=== PATIENT | male | born 1965 | race Caucasian/White ===

== ENCOUNTER 2022-10-24 21:30 | Inpatient (IN) | payer OTHER ==
--- NOTE | 2022-10-24 21:44 | ED ---
General Adult HPI - General Stated complaint: Abd Pain Time Seen by Provider: 10/24/22 21:38 - History of Present Illness Initial comments: This patient is a 57-year-old man here to have evaluation of abdominal pain. History is given both the patient and the majority of it by his , as he is having significant epigastric pain. The patient had been feeling pretty well and then had eaten dinner, following that by about 10 minutes he started to have severe epigastric pain. [place] and he went into the [place]. The patient states she found him complaining of significant pain and feeling sweaty. Patient now indicates the pain is in the right upper quadrant and radiates to his back. -: minutes(s) Location: abdomen Radiation: back Severity scale (1-10): 10 Quality: aching, constant Consistency: constant Improves with: none Worsens with: none Associated Symptoms: diaphoresis, nausea/vomiting Treatments Prior to Arrival: none - Related Data Home Medications Medication Instructions Recorded Confirmed Atorvastatin [Lipitor] 20 mg PO HS 10/24/22 10/24/22 DULoxetine HCL [Cymbalta] 60 mg PO DAILY 10/24/22 10/24/22 Omeprazole 40 mg PO DAILY PRN 10/24/22 10/24/22 Terbinafine [LamISIL] 250 mg PO DAILY 10/24/22 10/24/22 allopurinoL 100 mg PO BID 10/24/22 10/24/22 methocarbamoL [Robaxin-750] 750 mg PO TID PRN 10/24/22 10/24/22 Previous Rx's Medication Instructions Recorded Acetaminophen Tab [Tylenol] 650 mg PO Q6HR PRN tab 11/01/22 HYDROcodone/APAP 5-325MG [[place] 1 each PO Q6HR PRN #9 tab 11/01/22 5-325] Mag Hydrox/Al Hydrox/Simeth 15 ml PO Q6HR PRN ml 11/01/22 [Maalox] Nicotine 21Mg/24Hr Patch [Habitrol] 1 patch TRANSDERM DAILY #30 patch 11/01/22 Ondansetron Odt [Zofran Odt] 4 mg PO Q8HR PRN #20 tab 11/01/22 Allergies Allergy/AdvReac Type Severity Reaction Status Date / Time No Known Allergies Allergy Verified 10/24/22 22:29 Review of Systems ROS Statement: Those systems with pertinent positive or pertinent negative responses have been documented in the HPI. ROS Other: All systems not noted in ROS Statement are negative. Constitutional: Denies: fever, chills, weakness Respiratory: Denies: cough, dyspnea Cardiovascular: Denies: chest pain, palpitations, edema, syncope Gastrointestinal: Reports: abdominal pain, nausea. Denies: diarrhea, constipation, melena, hematochezia Genitourinary: Denies: dysuria, hematuria Musculoskeletal: Denies: back pain Skin: Denies: rash Neurological: Denies: headache, weakness General Exam General appearance: alert, in distress Head exam: Present: atraumatic, normocephalic Eye exam: Present: normal appearance. Absent: scleral icterus, conjunctival injection Neck exam: Present: normal inspection, full ROM Respiratory exam: Present: normal lung sounds bilaterally. Absent: respiratory distress, wheezes, rales, rhonchi, stridor Cardiovascular Exam: Present: regular rate, normal rhythm, normal heart sounds. Absent: systolic murmur, diastolic murmur, rubs, gallop GI/Abdominal exam: Present: soft, tenderness, guarding. Absent: distended, rebound, rigid, mass Extremities exam: Present: normal inspection, normal capillary refill. Absent: pedal edema, calf tenderness Back exam: Present: normal inspection. Absent: CVA tenderness (R), CVA tenderness (L) Neurological exam: Present: alert Skin exam: Present: warm, dry, intact, normal color. Absent: rash Course Vital Signs 10/24/22 10/24/22 10/24/22 21:35 22:22 23:13 Temperature 97.5 F L Pulse Rate 73 82 79 Respiratory 24 22 20 Rate Blood Pressure 104/60 112/64 110/64 O2 Sat by Pulse 93 L 96 96 Oximetry 10/25/22 01:19 Temperature Pulse Rate 89 Respiratory 18 Rate Blood Pressure 145/92 O2 Sat by Pulse 94 L Oximetry EKG Findings - EKG Results: EKG: WNL, sinus rhythm (Rate 75 bpm), normal axis, normal QRS, normal ST/T, no acute changes Medical Decision Making - Medical Decision Making Was pt. sent in by a medical professional or institution (, PA, LICENSED PRACTICAL VOCATIONAL NURSE, urgent care, hospital, or halfway...) When possible be specific @ -[No] Did you speak to anyone other than the patient for history (EMS, parent, family, police, friend...)? What history was obtained from this source @ -[The patient's family did contribute to history Did you review nursing and triage notes (agree or disagree)? Why? @ -[I reviewed and agree with nursing and triage notes] Were old charts reviewed (outside hosp., previous admission, EMS record, old EKG, old radiological studies, urgent care reports/EKG's, halfway records)? Report findings @ -[No old charts were reviewed] Differential Diagnosis (chest pain, altered mental status, abdominal pain women, abdominal pain men, vaginal bleeding, weakness, fever, dyspnea, syncope, headache, dizziness, GI bleed, back pain, seizure, CVA, palpatations, mental health, musculoskeletal)? @ -[Differential Abdominal Pain Men: Appendicitis, cholecystitis, diverticulosis, ischemic bowel, pancreatitis, hepatitis, UTI, gastroenteritis, AAA, incarcerated hernia, bowel obstruction, constipation, inflammatory bowel, hepatitis, peptic ulcer disease, splenic infarction, perforated viscus, testicular torsion, this is not meant to be an all-inclusive list EKG interpreted by me (3pts min.). @ -[As above] X-rays interpreted by me (1pt min.). @ -[None done] CT interpreted by me (1pt min.). @ -[Computed tomography scan of the abdomen which I interpreted to show suspected pancreatitis U/S interpreted by me (1pt. min.). @ -[None done] What testing was considered but not performed or refused? (CT, X-rays, U/S, labs)? Why? @ -[None] What meds were considered but not given or refused? Why? @ -[None] Did you discuss the management of the patient with other professionals (professionals i.e. Dr., PA, LICENSED PRACTICAL VOCATIONAL NURSE, lab, RT, psych nurse, healthcare social worker, railway switch operator, teacher, cash management officer, case preparer and liner)? Give summary @ -[Case discussed with admitting physician Was smoking cessation discussed for >3mins.? @ -[No] Was critical care preformed (if so, how long)? @ -[No] Were there social determinants of health that impacted care today? How? (Homelessness, low income, unemployed, alcoholism, drug addiction, transportation, low edu. Level, literacy, decrease access to med. care, correction, r ehab)? @ -[No] Was there de-escalation of care discussed even if they declined (Discuss DNR or withdrawal of care, Hospice)? DNR status @ -[No] What co-morbidities impacted this encounter? (DM, HTN, Smoking, COPD, CAD, Cance r, CVA, ARF, Chemo, Hep., AIDS, mental health diagnosis, sleep apnea, morbid obesity)? @ -[None] Was patient admitted / discharged? Hospital course, mention meds given and route, prescriptions, significant lab abnormalities, going to OR and other pertinent info. @ -[The patient is admitted to have IV fluid, symptom management, GI rest Undiagnosed new problem with uncertain prognosis? @ -[No] Drug Therapy requiring intensive monitoring for toxicity (Heparin, Nitro, Insulin, Cardizem)? @ -[No] Were any procedures done? @ -[No] Diagnosis/symptom? @ -[Acute abdominal pain Acute pancreatitis Acute, or Chronic, or Acute on Chronic? @ -[default] Uncomplicated (without systemic symptoms) or Complicated (systemic symptoms)? @ -[Uncomplicated Side effects of treatment? @ -[No] Exacerbation, Progression, or Severe Exacerbation? @ -[No] Poses a threat to life or bodily function? How? (Chest pain, USA, DC, pneumonia, PE, COPD, DKA, ARF, appy, cholecystitis, CVA, Diverticulitis, Homicidal, Suicidal, threat to staff... and all critical care pts) @ -[No] - Lab Data Result diagrams: 11/01/22 05:15 11/01/22 05:15 Lab Results 10/24/22 10/24/22 10/24/22 Range/Units 21:44 21:44 21:44 WBC 13.3 H (3.8-10.6) k/uL RBC 5.29 (4.30-5.90) m/uL Hgb 14.5 (13.0-17.5) gm/dL Hct 43.2 (39.0-53.0) % MCV 81.5 (80.0-100.0) fL MCH 27.4 (25.0-35.0) pg MCHC 33.6 (31.0-37.0) g/dL RDW 14.4 (11.5-15.5) % Plt Count 200 (150-450) k/uL MPV 8.4 Neutrophils % 71 % Lymphocytes % 21 % Monocytes % 7 % Eosinophils % 1 % Basophils % 0 % Neutrophils # 9.4 H (1.3-7.7) k/uL Lymphocytes # 2.7 (1.0-4.8) k/uL Monocytes # 0.9 (0-1.0) k/uL Eosinophils # 0.1 (0-0.7) k/uL Basophils # 0.0 (0-0.2) k/uL Sodium (137-145) mmol/L Potassium (3.5-5.1) mmol/L Chloride (98-107) mmol/L Carbon Dioxide (22-30) mmol/L Anion Gap mmol/L BUN (9-20) mg/dL Creatinine (0.66-1.25) mg/dL Est GFR (CKD-EPI)AfAm (>60 ml/min/1.73 sqM) Est GFR (CKD-EPI)NonAf (>60 ml/min/1.73 sqM) Glucose (74-99) mg/dL POC Glucose (mg/dL) (70-110) mg/dL POC Glu Body Welder ID Lactic Ac Sepsis Rflx Plasma Lactic Acid Toni 2.6 H* (0.7-2.0) mmol/L Calcium (8.4-10.2) mg/dL Total Bilirubin (0.2-1.3) mg/dL AST (17-59) U/L ALT (4-49) U/L Alkaline Phosphatase (38-126) U/L Troponin I <0.012 (0.000-0.034) ng/mL Total Protein (6.3-8.2) g/dL Albumin (3.5-5.0) g/dL Amylase (30-110) U/L Lipase (23-300) U/L Urine Color Urine Appearance (Clear) Urine pH (5.0-8.0) Ur Specific [place] (1.001-1.035) Urine Protein (Negative) Urine Glucose (UA) (Negative) Urine Ketones (Negative) Urine Blood (Negative) Urine Nitrite (Negative) Urine Bilirubin (Negative) Urine Urobilinogen (<2.0) mg/dL Ur Leukocyte Esterase (Negative) Urine RBC (0-5) /hpf Urine WBC (0-5) /hpf Ur Squamous Epith Cells (0-4) /hpf Hyaline Casts (0-2) /lpf Urine Mucus (None) /hpf 10/24/22 10/24/22 10/24/22 Range/Units 21:44 21:48 22:38 WBC (3.8-10.6) k/uL RBC (4.30-5.90) m/uL Hgb (13.0-17.5) gm/dL Hct (39.0-53.0) % MCV (80.0-100.0) fL MCH (25.0-35.0) pg MCHC (31.0-37.0) g/dL RDW (11.5-15.5) % Plt Count (150-450) k/uL MPV Neutrophils % % Lymphocytes % % Monocytes % % Eosinophils % % Basophils % % Neutrophils # (1.3-7.7) k/uL Lymphocytes # (1.0-4.8) k/uL Monocytes # (0-1.0) k/uL Eosinophils # (0-0.7) k/uL Basophils # (0-0.2) k/uL Sodium 138 (137-145) mmol/L Potassium 4.3 (3.5-5.1) mmol/L Chloride 105 (98-107) mmol/L Carbon Dioxide 23 (22-30) mmol/L Anion Gap 10 mmol/L BUN 22 H (9-20) mg/dL Creatinine 1.49 H (0.66-1.25) mg/dL Est GFR (CKD-EPI)AfAm 60 (>60 ml/min/1.73 sqM) Est GFR (CKD-EPI)NonAf 52 (>60 ml/min/1.73 sqM) Glucose 138 H (74-99) mg/dL POC Glucose (mg/dL) 136 H (70-110) mg/dL POC Glu Body Welder ID Dariel Meza Lactic Ac Sepsis Rflx Y Plasma Lactic Acid Toni (0.7-2.0) mmol/L Calcium 9.2 (8.4-10.2) mg/dL Total Bilirubin 0.6 (0.2-1.3) mg/dL AST 32 (17-59) U/L ALT 24 (4-49) U/L Alkaline Phosphatase 64 (38-126) U/L Troponin I (0.000-0.034) ng/mL Total Protein 7.6 (6.3-8.2) g/dL Albumin 4.7 (3.5-5.0) g/dL Amylase 5595 H* (30-110) U/L Lipase >05842 H (23-300) U/L Urine Color Urine Appearance (Clear) Urine pH (5.0-8.0) Ur Specific [place] (1.001-1.035) Urine Protein (Negative) Urine Glucose (UA) (Negative) Urine Ketones (Negative) Urine Blood (Negative) Urine Nitrite (Negative) Urine Bilirubin (Negative) Urine Urobilinogen (<2.0) mg/dL Ur Leukocyte Esterase (Negative) Urine RBC (0-5) /hpf Urine WBC (0-5) /hpf Ur Squamous Epith Cells (0-4) /hpf Hyaline Casts (0-2) /lpf Urine Mucus (None) /hpf 10/24/22 Range/Units 23:25 WBC (3.8-10.6) k/uL RBC (4.30-5.90) m/uL Hgb (13.0-17.5) gm/dL Hct (39.0-53.0) % MCV (80.0-100.0) fL MCH (25.0-35.0) pg MCHC (31.0-37.0) g/dL RDW (11.5-15.5) % Plt Count (150-450) k/uL MPV Neutrophils % % Lymphocytes % % Monocytes % % Eosinophils % % Basophils % % Neutrophils # (1.3-7.7) k/uL Lymphocytes # (1.0-4.8) k/uL Monocytes # (0-1.0) k/uL Eosinophils # (0-0.7) k/uL Basophils # (0-0.2) k/uL Sodium (137-145) mmol/L Potassium (3.5-5.1) mmol/L Chloride (98-107) mmol/L Carbon Dioxide (22-30) mmol/L Anion Gap mmol/L BUN (9-20) mg/dL Creatinine (0.66-1.25) mg/dL Est GFR (CKD-EPI)AfAm (>60 ml/min/1.73 sqM) Est GFR (CKD-EPI)NonAf (>60 ml/min/1.73 sqM) Glucose (74-99) mg/dL POC Glucose (mg/dL) (70-110) mg/dL POC Glu Body Welder ID Lactic Ac Sepsis Rflx Plasma Lactic Acid Toni (0.7-2.0) mmol/L Calcium (8.4-10.2) mg/dL Total Bilirubin (0.2-1.3) mg/dL AST (17-59) U/L ALT (4-49) U/L Alkaline Phosphatase (38-126) U/L Troponin I (0.000-0.034) ng/mL Total Protein (6.3-8.2) g/dL Albumin (3.5-5.0) g/dL Amylase (30-110) U/L Lipase (23-300) U/L Urine Color Yellow Urine Appearance Clear (Clear) Urine pH 5.5 (5.0-8.0) Ur Specific [place] 1.025 (1.001-1.035) Urine Protein 1+ H (Negative) Urine Glucose (UA) Negative (Negative) Urine Ketones Negative (Negative) Urine Blood Negative (Negative) Urine Nitrite Negative (Negative) Urine Bilirubin Negative (Negative) Urine Urobilinogen 2.0 (<2.0) mg/dL Ur Leukocyte Esterase Negative (Negative) Urine RBC 1 (0-5) /hpf Urine WBC <1 (0-5) /hpf Ur Squamous Epith Cells <1 (0-4) /hpf Hyaline Casts 1 (0-2) /lpf Urine Mucus Occasional H (None) /hpf Disposition Clinical Impression: Pancreatitis Disposition: ADMITTED IP TO THIS HOSP Condition: Fair Is patient prescribed a controlled substance at d/c from ED?: No
[2022-10-24 21:49] LABS: Glucose,Whole Blood 136 mg/dL (70-110)
[2022-10-24] MEDS ORDERED: KETOROLAC 15 MG/ML 1 ML VIAL IVP STA (22:09)
[2022-10-24] MEDS ORDERED: HYDROmorphone 0.5 MG/0.5 ML SYRINGE IVP STA (22:09)
[2022-10-24 22:39] LABS: Basophils % (A) 0 %; Eosinophils # (A) 0.1 k/uL (0-0.7); Eosinophils % (A) 1 %; HCT 43.2 % (39.0-53.0); HGB 14.5 gm/dL (13.0-17.5); Lymphocytes # (A) 2.7 k/uL (1.0-4.8); Lymphocytes % (A) 21 %; MCH 27.4 pg (25.0-35.0); MCHC 33.6 g/dL (31.0-37.0); MCV 81.5 fL (80.0-100.0); Mean Platelet Volume 8.4; Monocytes # (A) 0.9 k/uL (0-1.0); Monocytes % (A) 7 %; Neutrophils # (A) 9.4 k/uL (1.3-7.7); Neutrophils % (A) 71 %; Platelet Count 200 k/uL (150-450); RBC 5.29 m/uL (4.30-5.90); RDW 14.4 % (11.5-15.5); WBC 13.3 k/uL (3.8-10.6)
[2022-10-24 23:22] LABS: Anion Gap 10 mmol/L; Carbon Dioxide 23 mmol/L (22-30); Chloride 105 mmol/L (98-107); Glucose 138 mg/dL (74-99); Potassium 4.3 mmol/L (3.5-5.1); Sodium 138 mmol/L (137-145)
[2022-10-24 23:23] LABS: ALT 24 U/L (4-49); AST 32 U/L (17-59); African American GFR (CKD) 60 (>60 ml/min/1.73 sqM); Albumin 4.7 g/dL (3.5-5.0); Alkaline Phosphatase 64 U/L (38-126); Blood Urea Nitrogen 22 mg/dL (9-20); Calcium 9.2 mg/dL (8.4-10.2); Non-African American GFR(CKD) 52 (>60 ml/min/1.73 sqM); Total Bilirubin 0.6 mg/dL (0.2-1.3); Total Protein 7.6 g/dL (6.3-8.2)
[2022-10-24 23:25] LABS: Amylase 5595 U/L (30-110); Lipase >20000 U/L (23-300)
--- NOTE | 2022-10-24 23:25 | CT ---
EXAMINATION TYPE: CT abdomen pelvis wo con CT DLP: 1300 mGycm, Automated exposure control for dose reduction was used. DATE OF EXAM: 10/24/2022 10:48 PM COMPARISON: None CLINICAL INDICATION:Male, 57 years old with history of RUQ abdominal pain; abd pain TECHNIQUE: Standard CT of the abdomen and pelvis without IV or oral contrast. Lack of IV or oral co ntrast limits evaluation of solid and hollow organ viscera. Coronal and sagittal reformats were perfo rmed. FINDINGS: LOWER CHEST: Lateral right middle lobe and lower lobe subsegmental atelectasis. ABDOMEN LIVER: Unremarkable noncontrast appearance. GALLBLADDER AND BILE DUCTS: Unremarkable noncontrast appearance. PANCREAS: Diffuse peripancreatic fat stranding without definitive organized fluid collection. No panc reatic parenchymal calcifications. SPLEEN: Unremarkable noncontrast appearance. ADRENAL GLANDS: Unremarkable noncontrast appearance.. KIDNEYS AND URETERS: No evidence of hydronephrosis or renal calculus. Renal inferior pole cyst measur ing up to 3.7 cm. PELVIS BLADDER: Unremarkable REPRODUCTIVE: Prostate is enlarged in size measuring 5.4 cm in transverse dimension. Prostate calcifi cations identified. ABDOMEN & PELVIS STOMACH AND BOWEL: Mild gastric distention. There is some fat stranding involving the proximal duoden um. The appendix is within normal limits. No evidence of bowel obstruction. PERITONEUM: No evidence of pneumoperitoneum or free fluid. VASCULATURE: No evidence of aortic aneurysm. MUSCULOSKELETAL: No acute osseous abnormalities. Sclerotic focus within the right bone likely represe nting a benign bone island. Straightening of the normal lumbar lordosis. LYMPH NODES: No gross evidence for lymphadenopathy. SOFT TISSUE/ABDOMINAL WALL: Small fat filled umbilical hernia. IMPRESSION: 1. Findings consistent with acute edematous interstitial pancreatitis. No surrounding organized martínez pancreatic fluid collections. 2. Reactive duodenitis.
[2022-10-24 23:47] LABS: Appearance,Urine Clear (Clear); Bilirubin,Urine Negative (Negative); Blood,Urine Negative (Negative); Color,Urine Yellow; Glucose,Urine (UA) Negative (Negative); Hyaline Casts,Urine 1 /lpf (0-2); Ketones,Urine Negative (Negative); Leukocyte Esterase,Urine Negative (Negative); Mucus,Urine Occasional /hpf; Nitrite,Urine Negative (Negative); PH, Urine 5.5 (5.0-8.0); Protein,Urine 1+ (Negative); RBC,Urine 1 /hpf (0-5); Specific Gravity,Urine 1.025 (1.001-1.035); Squamous Epithelial Cell,Urine <1 /hpf (0-4); WBC,Urine <1 /hpf (0-5)
[2022-10-24] MEDS ORDERED: SODIUM CHLORIDE 0.9% 1,000 ML IV ONE ×2 (23:49→23:55)
[2022-10-24] MEDS ORDERED: HYDROmorphone 1 MG/ML 1 ML SYRINGE IVP STA (23:55)
[2022-10-24] MEDS ORDERED: SODIUM CHLORIDE 0.9% 1,000 ML IV STA (23:55)
[2022-10-25] MEDS ORDERED: NALOXONE 0.4 MG/ML 1 ML VIAL IV PRN (00:20)
[2022-10-25] MEDS ORDERED: ACETAMINOPHEN TAB 325 MG TAB PO PRN (00:20)
[2022-10-25] MEDS ORDERED: ONDANSETRON 4 MG/2 ML VIAL IVP PRN (00:20)
[2022-10-25] MEDS ORDERED: HYDROmorphone 1 MG/ML 1 ML SYRINGE IVP STA (01:12)
[2022-10-25] MEDS: HYDROmorphone 1 MG/ML 1 ML SYRINGE IVP PRN ×7 (01:15→22:19)
[2022-10-25] MEDS: SODIUM CHLORIDE 0.9% 1,000 ML IV SCH ×3 (05:23→15:20)
[2022-10-25] MEDS ORDERED: FAMOTIDINE 20 MG TAB PO SCH (09:00)
[2022-10-25] MEDS ORDERED: DEXTROSE 50% SYRINGE 50 ML IVP PRN ×2 (09:42)
[2022-10-25 10:58] LABS: African American GFR (CKD) >90 (>60 ml/min/1.73 sqM); Anion Gap 9 mmol/L; Blood Urea Nitrogen 22 mg/dL (9-20); Calcium 8.1 mg/dL (8.4-10.2); Carbon Dioxide 22 mmol/L (22-30); Chloride 106 mmol/L (98-107); Glucose 136 mg/dL (74-99); Non-African American GFR(CKD) 86 (>60 ml/min/1.73 sqM); Potassium 4.3 mmol/L (3.5-5.1); Sodium 137 mmol/L (137-145)
[2022-10-25 11:47] LABS: Amylase 2775 U/L (30-110); Lipase 11736 U/L (23-300)
[2022-10-25 11:54] LABS: Glucose,Whole Blood 115 mg/dL (70-110)
[2022-10-25] MEDS: INSULIN ASPART (NovoLOG) 100 UNIT/ML VIAL SQ SCH ×3 (12:01→23:41)
[2022-10-25] MEDS ORDERED: bisacodyL 5 MG TABLET.DR PO STA (14:55)
--- NOTE | 2022-10-25 14:58 | P.HPIM ---
History of Present Illness H&P Date: 10/25/22 This is a 57 year old male with medical history of hyperlipidemia, gout, MRSA infection to the left thigh, current daily smoker and also marijuana use. Presents to the hospital with 1 day onset of abdominal pain rating 10/10 diffuse with focal tenderness epigastric region. Patient is admitted for acute pancreatitis with abdominal pelvis CT showing acute edematous interstitial pancreatitis with no surrounding organized peripancreatic fluid collections with reactive duodenitis. Patient reports he was camping and a a large meal with ge[place]ian food and cheese and also drank about a case of beer. He does deny daily drinking. He than began experiencing abdominal pain. No nausea or vomiting report, he does feel like he needs to have a bowel movement. He is denying chest pain, no shortness of breath, no fever or chills. White count is 13.3 on admission, BUN 22, creatinine 1.49, blood glucose 136, lactic acid of 2.6, troponin level negative, amylase is 5595, lipase is greater than 20,000. Patikamini estes is being hydrated with normal saline at 130mls/hr, receiving pain management and bowel rest. Diet is downgraded to NPO. REVIEW OF SYSTEMS: CONSTITUTIONAL: No fever, no malaise, no fatigue. HEENT: No recent visual problems or hearing problems. Denied any sore throat. CARDIOVASCULAR: No chest pain, orthopnea, PND, no palpitations, no syncope. PULMONARY: No shortness of breath, no cough, no hemoptysis. GASTROINTESTINAL: No diarrhea, no nausea, no vomiting. Reports abdominal pain. NEUROLOGICAL: No headaches, no weakness, no numbness. HEMATOLOGICAL: Denies any bleeding or petechiae. GENITOURINARY: Denies any burning micturition, frequency, or urgency. MUSCULOSKELETAL/RHEUMATOLOGICAL: Denies any joint pain, swelling, or any muscle pain. ENDOCRINE: Denies any polyuria or polydipsia. The rest of the 14-point review of systems is negative. PHYSICAL EXAMINATION: GENERAL: The patient is alert and oriented x3, not in any acute distress. Well developed, well nourished. HEENT: Pupils are round and equally reacting to light. EOMI. No scleral icterus. No conjunctival pallor. Normocephalic, atraumatic. No pharyngeal erythema. No thyromegaly. CARDIOVASCULAR: S1 and S2 present. No murmurs, rubs, or gallops. PULMONARY: Chest is clear to auscultation, no wheezing or crackles. ABDOMEN: Soft, tender, nondistended, normoactive bowel sounds. No palpable organomegaly. MUSCULOSKELETAL: No joint swelling or deformity. EXTREMITIES: No cyanosis, clubbing, or pedal edema. NEUROLOGICAL: Gross neurological examination did not reveal any focal deficits. SKIN: No rashes. Assessment and plan Acute pancreatitis secondary to diet and alcohol use Leukocytosis History hyperlipidemia Hyperglycemia Chronic and ongoing nicotine use Marijuana use GI prophylaxis DVT prophylaxis Full Code Plan Continue NPO diet F/U labs amylase and lipase Continue IV hydration Educated on alcohol cessation and diet modification The impression and plan of care has been dictated by Yarely Albert Nurse Practitioner as directed. Dr. Amol MD I have performed a history and physical examination and medical decision making of this patient, discussed the same with the dictator, and agree with the dictators assessment and plan as written, documented as a scribe. Based on total visit time, I have performed more than 50% of this visit. Past Medical History Past Medical History: No Reported History, Hyperlipidemia Additional Past Medical History / Comment(s): Gout History of Any Multi-Drug Resistant Organisms: MRSA Date of last positivie culture/infection: 1999 MDRO Source:: Left Thigh Additional Past Surgical History / Comment(s): graft Past Anesthesia/Blood Transfusion Reactions: No Reported Reaction Past Psychological History: No Psychological Hx Reported Smoking Status: Current every day smoker Past Alcohol Use History: Daily Past Drug Use History: None Reported, Marijuana Medications and Allergies Home Medications Medication Instructions Recorded Confirmed Type Atorvastatin [Lipitor] 20 mg PO HS 10/24/22 10/24/22 History DULoxetine HCL [Cymbalta] 60 mg PO DAILY 10/24/22 10/24/22 History Meloxicam [Mobic] 15 mg PO HS 10/24/22 10/24/22 History Omeprazole 40 mg PO DAILY PRN 10/24/22 10/24/22 History Terbinafine [LamISIL] 250 mg PO DAILY 10/24/22 10/24/22 History allopurinoL 100 mg PO BID 10/24/22 10/24/22 History methocarbamoL [Robaxin-750] 750 mg PO TID PRN 10/24/22 10/24/22 History Allergies Allergy/AdvReac Type Severity Reaction Status Date / Time No Known Allergies Allergy Verified 10/24/22 22:29 Physical Exam Vitals: Vital Signs Temp Pulse Pulse Resp BP BP Pulse Ox 10/25/22 07:25 98.0 F 73 20 150/66 96 10/25/22 02:00 98.1 F 75 16 155/89 96 10/25/22 01:19 89 18 145/92 94 L 10/24/22 23:13 79 20 110/64 96 10/24/22 22:22 82 22 112/64 96 10/24/22 21:35 97.5 F L 73 24 104/60 93 L Intake and Output 10/24/22 10/25/22 10/25/22 22:59 06:59 14:59 Intake Total 590 2650 Output Total 482 Balance 590 2168 Intake: Intake, IV Titration 2650 Amount Sodium Chloride 0.9% 1, 650 000 ml @ 130 mls/hr IV . Q7H42M [facility] Rx#:[id number] Sodium Chloride 0.9% 1, 2000 000 ml @ 999 mls/hr IV . Q1H1M [facility] Rx#:[id number] Oral 590 Output: Urine 150 Post Void Residual 332 Other: # Voids 2 Weight 117.934 kg 117.934 kg Results CBC & Chem 7: 10/24/22 21:44 10/25/22 10:28 Labs: Abnormal Lab Results - Last 24 Hours (Table) 10/24/22 10/24/22 10/24/22 Range/Units 21:44 21:44 21:44 WBC 13.3 H (3.8-10.6) k/uL Neutrophils # 9.4 H (1.3-7.7) k/uL BUN 22 H (9-20) mg/dL Creatinine 1.49 H (0.66-1.25) mg/dL Glucose 138 H (74-99) mg/dL POC Glucose (mg/dL) (70-110) mg/dL Plasma Lactic Acid Toni 2.6 H* (0.7-2.0) mmol/L Amylase 5595 H* (30-110) U/L Lipase >64986 H (23-300) U/L Urine Protein (Negative) Urine Mucus (None) /hpf 10/24/22 10/24/22 Range/Units 21:48 23:25 WBC (3.8-10.6) k/uL Neutrophils # (1.3-7.7) k/uL BUN (9-20) mg/dL Creatinine (0.66-1.25) mg/dL Glucose (74-99) mg/dL POC Glucose (mg/dL) 136 H (70-110) mg/dL Plasma Lactic Acid Toni (0.7-2.0) mmol/L Amylase (30-110) U/L Lipase (23-300) U/L Urine Protein 1+ H (Negative) Urine Mucus Occasional H (None) /hpf Thrombosis Risk Factor Assmnt - Choose All That Apply Each Factor Represents 1 point: Obesity (BMI >25) Thrombosis Risk Factor Assessment Total Risk Factor Score: 1 Thrombosis Risk Factor Assessment Level: Low Risk Assessment and Plan Time with Patient: Less than 30
[2022-10-25 17:26] LABS: Glucose,Whole Blood 108 mg/dL (70-110)
[2022-10-25 20:41] LABS: Glucose,Whole Blood 99 mg/dL (70-110)
[2022-10-25] MEDS ORDERED: bisacodyL 10 MG SUPP RECTAL SCH (21:00)
[2022-10-25] MEDS: PANTOPRAZOLE 40 MG/10 ML VIAL IVP SCH (21:06)
[2022-10-25] MEDS: MAG HYDROX/AL HYDROX/SIMETH 30 ML CUP PO PRN (21:07)
[2022-10-25] MEDS: KETOROLAC 15 MG/ML 1 ML VIAL IVP PRN (21:07)
[2022-10-25] MEDS: TEMAZEPAM 7.5 MG CAP PO PRN (21:07)
[2022-10-25] MEDS: ATORVASTATIN 20 MG TAB PO SCH (21:07)
[2022-10-25] MEDS: allopurinoL 100 MG TAB PO SCH (21:07)
[2022-10-26] MEDS: MAG HYDROX/AL HYDROX/SIMETH 30 ML CUP PO PRN ×2 (03:33→20:22)
[2022-10-26] MEDS: KETOROLAC 15 MG/ML 1 ML VIAL IVP PRN ×2 (03:34→20:21)
[2022-10-26] MEDS: HYDROmorphone 1 MG/ML 1 ML SYRINGE IVP PRN ×4 (03:35→18:10)
[2022-10-26] MEDS: SODIUM CHLORIDE 0.9% 1,000 ML IV SCH (04:02)
[2022-10-26 05:53] LABS: African American GFR (CKD) >90 (>60 ml/min/1.73 sqM); Anion Gap 10 mmol/L; Blood Urea Nitrogen 17 mg/dL (9-20); Carbon Dioxide 23 mmol/L (22-30); Chloride 100 mmol/L (98-107); Glucose 100 mg/dL (74-99); Non-African American GFR(CKD) >90 (>60 ml/min/1.73 sqM); Potassium 3.9 mmol/L (3.5-5.1); Sodium 133 mmol/L (137-145)
[2022-10-26 06:10] LABS: Amylase 1857 U/L (30-110)
[2022-10-26 06:22] LABS: Lipase 7445 U/L (23-300)
[2022-10-26] MEDS: INSULIN ASPART (NovoLOG) 100 UNIT/ML VIAL SQ SCH ×4 (08:02→20:21)
[2022-10-26] MEDS: PANTOPRAZOLE 40 MG/10 ML VIAL IVP SCH ×2 (08:48→20:21)
[2022-10-26] MEDS: allopurinoL 100 MG TAB PO SCH ×2 (08:48→20:20)
[2022-10-26] MEDS: DULoxetine HCL 60 MG CAPSULE.DR PO SCH (08:48)
[2022-10-26] MEDS ORDERED: SODIUM CHLORIDE 0.9% 1,000 ML IV SCH (09:45)
[2022-10-26 11:45] LABS: Glucose,Whole Blood 106 mg/dL (70-110)
[2022-10-26 17:10] LABS: Glucose,Whole Blood 110 mg/dL (70-110)
[2022-10-26] MEDS: TEMAZEPAM 7.5 MG CAP PO PRN (20:20)
[2022-10-26] MEDS: ATORVASTATIN 20 MG TAB PO SCH (20:21)
--- NOTE | 2022-10-27 00:38 | P.PN ---
Subjective Progress Note Date: 10/26/22 This is a 57 year old male with medical history of hyperlipidemia, gout, MRSA infection to the left thigh, current daily smoker and also marijuana use. Presents to the hospital with 1 day onset of abdominal pain rating 10/10 diffuse with focal tenderness epigastric region. Patient is admitted for acute chung creatitis with abdominal pelvis CT showing acute edematous interstitial pancreatitis with no surrounding organized peripancreatic fluid collections with reactive duodenitis. Patient reports he was camping and a a large meal with mosotho food and cheese and also drank about a case of beer. He does deny daily drinking. He than began experiencing abdominal pain. No nausea or vomiting report, he does feel like he needs to have a bowel movement. He is denying chest pain, no shortness of breath, no fever or chills. White count is 13.3 on admission, BUN 22, creatinine 1.49, blood glucose 136, lactic acid of 2.6, troponin level negative, amylase is 5595, lipase is greater than 20,000. Patient is being hydrated with normal saline at 130mls/hr, receiving pain management and bowel rest. Diet is downgraded to NPO. 10/26/2022 Patient is evaluated today on the medical floor. He has been NPO overnight and today states improvement in abdominal pain with minimal epigastric tenderness to palpation on assessment. Amylase and lipase are trending down. Diet will be advanced to clear liquid and will f/u labs in the AM. Patient does have significant tenderness to the right upper quadrant on exam and will f/u with a CMP in the AM with f/u imaging if symptoms are not improving. Patient does report he has been having similar symptoms as this especially after eating over the last [address] does also reveal lateral right middle lobe and lower lobe subsegmental atelectasis and patient will be offered an incentive spirometer. Prostate is also enlarged at 5.4 cm in transverse dimension with prostate calcifications. Review of Systems Constitutional: Denied any fatigue denied any fever. Cardio vascular: denied any chest pain, palpitations Gastrointestinal: denied any nausea, vomiting, diarrhea Reports abdominal pain lower abdomen and lower back pain. Pulmonary: Denied any shortness of breath cough Neurologic denied any new focal deficits All inpatient medications were reviewed and appropriate changes in these medications as dictated in the interval history and assessment and plan. PHYSICAL EXAMINATION: GENERAL: The patient is alert and oriented x3, not in any acute distress. Well developed, well nourished. HEENT: Pupils are round and equally reacting to light. EOMI. No scleral icterus. No conjunctival pallor. Normocephalic, atraumatic. No pharyngeal erythema. No thyromegaly. CARDIOVASCULAR: S1 and S2 present. No murmurs, rubs, or gallops. PULMONARY: Chest is clear to auscultation, no wheezing or crackles. ABDOMEN: Soft, tender mild epigastric and also RUQ abdominal pain, nondistended, normoactive bowel sounds. No palpable organomegaly. MUSCULOSKELETAL: No joint swelling or deformity. EXTREMITIES: No cyanosis, clubbing, or pedal edema. NEUROLOGICAL: Gross neurological examination did not reveal any focal deficits. SKIN: No rashes. Assessment and plan Acute pancreatitis with reactive duodenitis secondary to diet and alcohol use RUQ abdominal pain Leukocytosis Prostatomegaly f/u with urology on dc and monitor for urinary retention History hyperlipidemia Hyperglycemia hemoglobin A1C of 5.4 and blood glucose has normalized, no evidence to consider diabetes mellitus at this time. Chronic and ongoing nicotine use counseled on cessation and patient is denying nicotine patch at this time Marijuana use GI prophylaxis DVT prophylaxis Full Code Plan Diet has been advanced to clear liquid and recommend to decreased diet back to NPO if patient experiences an increase in abdominal pain or discomfort with diet. F/U labs amylase and lipase in the AM as well as CMP. Consider abdominal/pelvis CT with contrast for further evaluation for RUQ abdominal pain if not improving Sodium has decreased with IV fluids and will recommending discontinuing IV fluids if patient is tolerating clear liquid diet. Educated on alcohol cessation and diet modification Patient to follow up with GI services and urology on discharge The impression and plan of care has been dictated by Yarely Albert Nurse Practitioner as directed. Dr. Amol MD I have performed a history and physical examination and medical decision making of this patient, discussed the same with the dictator, and agree with the dictators assessment and plan as written, documented as a scribe. Based on total visit time, I have performed more than 50% of this visit. Objective - Vital Signs Vital signs: Vital Signs Temp 98.7 F 10/26/22 19:34 Pulse 96 10/26/22 19:34 Resp 20 10/26/22 19:34 BP 135/76 10/26/22 19:34 Pulse Ox 97 10/26/22 19:34 FiO2 Intake & Output 10/26/22 10/26/22 10/27/22 06:59 18:59 06:59 Intake Total 1200 Output Total 800 300 Balance 400 -300 Intake: Intake, IV Titration 1200 Amount Sodium Chloride 0.9% 1, 1200 000 ml @ 100 mls/hr IV . Q10H [facility] Rx#:[id number] Oral 0 Output: Urine 800 300 Other: Voiding Method Urinal Urinal Urinal # Voids 2 - Labs CBC & Chem 7: 10/24/22 21:44 10/26/22 05:06 Labs: Abnormal Lab Results - Last 24 Hours (Table) 10/26/22 Range/Units 05:06 Sodium 133 L (137-145) mmol/L Glucose 100 H (74-99) mg/dL Calcium 8.0 L (8.4-10.2) mg/dL Amylase 1857 H* (30-110) U/L Lipase 7445 H (23-300) U/L Assessment and Plan Time with Patient: Less than 30
[2022-10-27 06:48] LABS: ALT 16 U/L (4-49); AST 24 U/L (17-59); African American GFR (CKD) >90 (>60 ml/min/1.73 sqM); Albumin 3.3 g/dL (3.5-5.0); Albumin/Globulin Ratio 1.3; Alkaline Phosphatase 62 U/L (38-126); Anion Gap 7 mmol/L; Blood Urea Nitrogen 12 mg/dL (9-20); Carbon Dioxide 23 mmol/L (22-30); Chloride 100 mmol/L (98-107); Globulin 2.5 g/dL; Glucose 106 mg/dL (74-99); Non-African American GFR(CKD) >90 (>60 ml/min/1.73 sqM); Potassium 3.9 mmol/L (3.5-5.1); Sodium 130 mmol/L (137-145); Total Bilirubin 1.4 mg/dL (0.2-1.3); Total Protein 5.8 g/dL (6.3-8.2)
[2022-10-27] MEDS: DULoxetine HCL 60 MG CAPSULE.DR PO SCH (07:14)
[2022-10-27] MEDS: allopurinoL 100 MG TAB PO SCH ×2 (07:14→20:47)
[2022-10-27 07:46] LABS: Amylase 914 U/L (30-110)
[2022-10-27 07:48] LABS: Lipase 4862 U/L (23-300)
[2022-10-27 08:19] LABS: Glucose,Whole Blood 119 mg/dL (70-110)
[2022-10-27] MEDS: PANTOPRAZOLE 40 MG/10 ML VIAL IVP SCH ×2 (10:03→20:47)
[2022-10-27] MEDS: SODIUM CHLORIDE 0.9% 1,000 ML IV SCH (10:03)
[2022-10-27 11:24] LABS: Glucose,Whole Blood 118 mg/dL (70-110)
[2022-10-27] MEDS: KETOROLAC 15 MG/ML 1 ML VIAL IVP PRN (13:10)
--- NOTE | 2022-10-27 14:31 | P.PN ---
Subjective Progress Note Date: 10/27/22 This is a 57 year old male with medical history of hyperlipidemia, gout, MRSA infection to the left thigh, current daily smoker and also marijuana use. Presents to the hospital with 1 day onset of abdominal pain rating 10/10 diffuse with focal tenderness epigastric region. Patient is admitted for acute chung creatitis with abdominal pelvis CT showing acute edematous interstitial pancreatitis with no surrounding organized peripancreatic fluid collections with reactive duodenitis. Patient reports he was camping and a a large meal with mauritanian food and cheese and also drank about a case of beer. He does deny daily drinking. He than began experiencing abdominal pain. No nausea or vomiting report, he does feel like he needs to have a bowel movement. He is denying chest pain, no shortness of breath, no fever or chills. White count is 13.3 on admission, BUN 22, creatinine 1.49, blood glucose 136, lactic acid of 2.6, troponin level negative, amylase is 5595, lipase is greater than 20,000. Patient is being hydrated with normal saline at 130mls/hr, receiving pain management and bowel rest. Diet is downgraded to NPO. 10/26/2022 Patient is evaluated today on the medical floor. He has been NPO overnight and today states improvement in abdominal pain with minimal epigastric tenderness to palpation on assessment. Amylase and lipase are trending down. Diet will be advanced to clear liquid and will f/u labs in the AM. Patient does have significant tenderness to the right upper quadrant on exam and will f/u with a CMP in the AM with f/u imaging if symptoms are not improving. Patient does report he has been having similar symptoms as this especially after eating over the last [address] does also reveal lateral right middle lobe and lower lobe subsegmental atelectasis and patient will be offered an incentive spirometer. Prostate is also enlarged at 5.4 cm in transverse dimension with prostate calcifications. 10/27/2022 Patient evaluated on the medical floor he continues with significant right upper quad abdominal tenderness on exam and also has diffuse generalized abdominal pain. Has history of kidney stones also, does state he has been having issues with weakened stream lately and recommending post void residuals to monitor for urinary retention. Amylase and lipase are improving however patient does have elevated bilirubin level today and will need f/u imaging to rule out gallstone pancreatitis. Patient is resumed on normal saline secondary to drop in sodium if it continues to drop patient may need to be fluid restricted possibly SIADH from pain. Review of Systems Constitutional: Denied any fatigue denied any fever. Cardio vascular: denied any chest pain, palpitations Gastrointestinal: denied any nausea, vomiting, diarrhea has right and epigastric abdominal pain and flank pain. Pulmonary: Denied any shortness of breath cough Neurologic denied any new focal deficits All inpatient medications were reviewed and appropriate changes in these medications as dictated in the interval history and assessment and plan. PHYSICAL EXAMINATION: GENERAL: The patient is alert and oriented x3, not in any acute distress. Well developed, well nourished. HEENT: Pupils are round and equally reacting to light. EOMI. No scleral icterus. No conjunctival pallor. Normocephalic, atraumatic. No pharyngeal erythema. No thyromegaly. CARDIOVASCULAR: S1 and S2 present. No murmurs, rubs, or gallops. PULMONARY: Chest is clear to auscultation, no wheezing or crackles. ABDOMEN: Soft, tender mild epigastric and also RUQ abdominal pain,has bilateral CVA tenderness. nondistended, normoactive bowel sounds. No palpable organomegaly. MUSCULOSKELETAL: No joint swelling or deformity. EXTREMITIES: No cyanosis, clubbing, or pedal edema. NEUROLOGICAL: Gross neurological examination did not reveal any focal deficits. SKIN: No rashes. Assessment and plan Acute pancreatitis with reactive duodenitis secondary to diet and alcohol use Hyperbilirubinemia patient to be evaluated for gallstones possible gallstone pancreatitis Acute on chronic RUQ abdominal pain Leukocytosis Prostatomegaly f/u with urology on dc and monitor for urinary retention History hyperlipidemia Hyperglycemia hemoglobin A1C of 5.4 and blood glucose has normalized, no evidence to consider diabetes mellitus at this time. Chronic and ongoing nicotine use counseled on cessation and patient is denying nicotine patch at this time History of kidney stones Marijuana use GI prophylaxis DVT prophylaxis Full Code Plan Diet has been advanced to clear liquid and recommend to decreased diet back to NPO if patient experiences an increase in abdominal pain or discomfort with diet. Currently NPO for abdominal ultrasound to evaluate for gallstones F/U labs amylase and lipase in the AM as well as CMP. Educated on alcohol cessation and diet modification Patient to follow up with GI services and urology on discharge The impression and plan of care has been dictated by Yarely Albert, Nurse Practitioner as directed. Dr. Amol MD I have performed a history and physical examination and medical decision making of this patient, discussed the same with the dictator, and agree with the dictators assessment and plan as written, documented as a scribe. Based on total visit time, I have performed more than 50% of this visit. Objective - Vital Signs Vital signs: Vital Signs Temp 98.5 F 10/27/22 13:50 Pulse 90 10/27/22 13:50 Resp 18 10/27/22 13:50 BP 132/79 10/27/22 13:50 Pulse Ox 96 10/27/22 13:50 FiO2 Intake & Output 10/26/22 10/27/22 10/27/22 18:59 06:59 18:59 Intake Total 1000 Output Total 900 103 Balance 100 -103 Intake: Intake, IV Titration 600 Amount Sodium Chloride 0.9% 1, 600 000 ml @ 50 mls/hr IV . Q20H [facility] Rx#:[id number] Oral 400 Output: Urine 900 Post Void Residual 103 Other: Voiding Method Urinal Urinal # Voids 2 - Labs CBC & Chem 7: 10/24/22 21:44 10/27/22 06:05 Labs: Abnormal Lab Results - Last 24 Hours (Table) 10/27/22 10/27/22 10/27/22 Range/Units 06:05 08:17 11:22 Sodium 130 L (137-145) mmol/L Glucose 106 H (74-99) mg/dL POC Glucose (mg/dL) 119 H 118 H (70-110) mg/dL Calcium 8.0 L (8.4-10.2) mg/dL Total Bilirubin 1.4 H (0.2-1.3) mg/dL Total Protein 5.8 L (6.3-8.2) g/dL Albumin 3.3 L (3.5-5.0) g/dL Amylase 914 H* (30-110) U/L Lipase 4862 H (23-300) U/L Assessment and Plan Time with Patient: Less than 30
--- NOTE | 2022-10-27 16:24 | US ---
EXAMINATION TYPE: US abdomen comp/pelvis limited DATE OF EXAM: 10/27/2022 COMPARISON: CT 10/24/22 CLINICAL INDICATION: Male, 57 years old with history of ?gallstones, ?kidney stones; ?Gallstone. Hx kidney stones. EXAM MEASUREMENTS: Liver Length: 22.2 cm Gallbladder Wall: 0.29 cm CBD: Obscured Spleen: 14.7 cm Right Kidney: 13.0 x 5.8 x 6.0 cm Left Kidney: 13.0 x 5.8 x 6.4 cm Pancreas: Obscured Liver: Appears enlarged and heterogeneous. Increased echogenicity. Gallbladder: Hyperechoic area seen that appears to be attached to the gallbladder wall: 0.7 x 0.4 x 0 .4 cm. CBD: Obscured Spleen: Appears enlarged. Right Kidney: Enlarged. No hydronephrosis or masses seen Left Kidney: Enlarged. Hypoechoic area seen lower pole: 4.2 x 3.3 x 3.1 cm. Upper IVC: Appears wnl Abd Aorta: Proximal segment appears aneurysmal measuring 3.4 cm Bladder: Appears anechoic Bilateral Jets Seen: Only right jet was seen during exam Free fluid seen within the RUQ and LUQ. IMPRESSION: 1. Hepatomegaly with underlying hepatic steatosis. 2. Adherent gallstones versus polyps. 3. Splenomegaly. 4. Proximal abdominal aortic aneurysm.
[2022-10-27 17:13] LABS: Glucose,Whole Blood 96 mg/dL (70-110)
[2022-10-27] MEDS: HYDROmorphone 1 MG/ML 1 ML SYRINGE IVP PRN (17:31)
[2022-10-27] MEDS: ATORVASTATIN 20 MG TAB PO SCH (20:47)
[2022-10-27] MEDS: HYDROmorphone 0.5 MG/0.5 ML SYRINGE IVP PRN (23:09)
[2022-10-28] MEDS: HYDROmorphone 0.5 MG/0.5 ML SYRINGE IVP PRN (03:19)
[2022-10-28] MEDS: SODIUM CHLORIDE 0.9% 1,000 ML IV SCH ×2 (03:20→14:02)
[2022-10-28 06:49] LABS: Basophils % (A) 0 %; Eosinophils # (A) 0.3 k/uL (0-0.7); Eosinophils % (A) 2 %; HCT 35.3 % (39.0-53.0); HGB 11.6 gm/dL (13.0-17.5); Lymphocytes % (A) 9 %; MCH 26.3 pg (25.0-35.0); MCHC 32.8 g/dL (31.0-37.0); MCV 80.1 fL (80.0-100.0); Mean Platelet Volume 8.1; Monocytes # (A) 0.7 k/uL (0-1.0); Monocytes % (A) 6 %; Neutrophils # (A) 8.6 k/uL (1.3-7.7); Neutrophils % (A) 81 %; Platelet Count 188 k/uL (150-450); RBC 4.41 m/uL (4.30-5.90); RDW 14.1 % (11.5-15.5); WBC 10.7 k/uL (3.8-10.6)
[2022-10-28 07:10] LABS: ALT 15 U/L (4-49); AST 18 U/L (17-59); African American GFR (CKD) >90 (>60 ml/min/1.73 sqM); Albumin 2.8 g/dL (3.5-5.0); Albumin/Globulin Ratio 1.2; Alkaline Phosphatase 63 U/L (38-126); Anion Gap 10 mmol/L; Blood Urea Nitrogen 12 mg/dL (9-20); Calcium 7.7 mg/dL (8.4-10.2); Carbon Dioxide 20 mmol/L (22-30); Chloride 103 mmol/L (98-107); Globulin 2.3 g/dL; Glucose 96 mg/dL (74-99); Magnesium 1.9 mg/dL (1.6-2.3); Non-African American GFR(CKD) >90 (>60 ml/min/1.73 sqM); Potassium 3.4 mmol/L (3.5-5.1); Sodium 133 mmol/L (137-145); Total Bilirubin 1.1 mg/dL (0.2-1.3); Total Protein 5.1 g/dL (6.3-8.2)
[2022-10-28] MEDS: PANTOPRAZOLE 40 MG/10 ML VIAL IVP SCH ×2 (08:57→20:42)
[2022-10-28] MEDS: allopurinoL 100 MG TAB PO SCH ×2 (08:57→20:42)
[2022-10-28] MEDS: DULoxetine HCL 60 MG CAPSULE.DR PO SCH (08:57)
[2022-10-28] MEDS: HYDROmorphone 1 MG/ML 1 ML SYRINGE IVP PRN ×3 (09:02→22:30)
[2022-10-28] MEDS: POTASSIUM CHLORIDE ER 10 MEQ TAB.ER.PRT PO SCH ×2 (10:40→12:10)
--- NOTE | 2022-10-28 15:50 | P.GSCN ---
History of Present Illness Consult date: 10/28/22 History of present illness: CHIEF COMPLAINT: Abdominal pain HISTORY OF PRESENT ILLNESS: This is a 57-year-old male who presents to the hospital with complaints of abdominal pain after eating Mongolian for dinner. He also had drank a case of beer. Patient was found have elevated lipase and evidence of pancreatitis and duodenitis on CAT scan. Ultrasound had shown gall stones versus gallbladder polyps. Patient reports the initial pain across the upper abdomen was about 11 out of 10. He was having nausea and dry heaves. No evidence of vomiting. He does complain of diffuse pain. He is having flatus. It's been about 2 days since his last bowel movement. His lipase on admission was elevated at 20,000 and is trending downwards. Patient has had decrease in his pain. Denies any fever, chills or sweats. PAST MEDICAL HISTORY: See list. History of kidney stones PAST SURGICAL HISTORY: See list. MEDICATIONS: See list. ALLERGIES: See list. SOCIAL HISTORY: No illicit drug use. REVIEW OF SYSTEMS: CONSTITUTIONAL: Denies fever or chills. HEENT: Denies blurred vision, vision changes, or eye pain. Denies hemoptysis ENDOCRINE: Denies heat or cold intolerance. CARDIOVASCULAR: Denies chest pain or pressure. RESPIRATORY: No shortness of breath. GASTROINTESTINAL: Denies abdominal pain. Denies nausea or vomiting. NEURO: Denies history of seizures. PSYCH: No depression or suicidal ideation HEMATOLOGIC: Denies bleeding disorders. LYMPHATIC: The patient denies any lumps and bumps around the neck. GENITOURINARY: Denies any blood in urine or increased urinary frequency. MUSCULOSKELETAL: Denies myalgias. Denies joint swelling. Denies decreased range of motion beyond patients baseline. SKIN: Denies pruitis. Denies rash. PHYSICAL EXAM: VITAL SIGNS: Reviewed GENERAL: Well-developed in no acute distress. HEENT: No sclera icterus. Extraocular movements grossly intact. Moist buccal mucosa. Head is atraumatic, normocephalic. Hears conversational speech. No nasal drainage. NECK: Supple without lymphadenopathy. CHEST: Non-labored respirations and equal bilateral excursions. CARDIOVASCULAR: Palpable 2+ radial pulses. ABDOMEN: Soft. Nondistended. Patient has diffuse tenderness but more tender in the epigastric and right upper quadrant with palpation MUSCULOSKELETAL: No clubbing or cyanosis. NEUROLOGIC: No focal or lateralizing signs. Cranial nerves II through XII grossly intact. PSYCH: Appropriate affect. Alert and oriented to person, place and time. SKIN: Well perfused. Good skin turgor. LABORATORY DATA: WBC 13.3 down to 10.7 Hgb 11.6 platelets 188 Sodium is 133 potassium 3.4 creatinine 0.73 Lactic acid 2.6-1.6 Magnesium 1.9 total bilirubin 1.4 down to 1.1 LFTs are normal Lipase greater than 20,000 down to 4862 Urinalysis negative for infection IMAGING: Computed tomography scan abdomen and pelvis findings consistent with acute edematous interstitial pancreatitis. No surrounding organized. Pancreatic flui d collections. Reactive duodenitis. Abdominal ultrasound hepatomegaly with underlying hepatic steatosis. Adherent gallstones versus polyps. Splenomegaly. Proximal abdominal aortic aneurysm measuring 3.4 cm ASSESSMENT: 1. Acute pancreatitis with possible gallstones noted on ultrasound versus polyps. Pain did occur after Mongolian food and alcohol use 2. Hypokalemia 3. Abdominal aortic aneurysm 4. Hyperlipidemia PLAN: -Consult cardiology for cardiac risk assessment -Check echo -Check EKG -Further recommendations forthcoming per surgeon regarding possible cholecystectomy -Start clear liquid diet -Continue pain management -Continue IV fluids -Continue supportive care -Counseled patient on abstaining from alcohol Thank you for this consult Physician Tax Technician note has been reviewed by physician. Signing provider agrees with the documented findings, assessment, and plan of care. Past Medical History Past Medical History: No Reported History, Hyperlipidemia Additional Past Medical History / Comment(s): Gout History of Any Multi-Drug Resistant Organisms: MRSA Year Discovered:: 1999 MDRO Source:: Left Thigh Additional Past Surgical History / Comment(s): graft Past Anesthesia/Blood Transfusion Reactions: No Reported Reaction Past Psychological History: No Psychological Hx Reported Smoking Status: Current every day smoker Past Alcohol Use History: Daily Past Drug Use History: None Reported, Marijuana Medications and Allergies Home Medications Medication Instructions Recorded Confirmed Type Atorvastatin [Lipitor] 20 mg PO HS 10/24/22 10/24/22 History DULoxetine HCL [Cymbalta] 60 mg PO DAILY 10/24/22 10/24/22 History Meloxicam [Mobic] 15 mg PO HS 10/24/22 10/24/22 History Omeprazole 40 mg PO DAILY PRN 10/24/22 10/24/22 History Terbinafine [LamISIL] 250 mg PO DAILY 10/24/22 10/24/22 History allopurinoL 100 mg PO BID 10/24/22 10/24/22 History methocarbamoL [Robaxin-750] 750 mg PO TID PRN 10/24/22 10/24/22 History Allergies Allergy/AdvReac Type Severity Reaction Status Date / Time No Known Allergies Allergy Verified 10/24/22 22:29 Surgical - Exam Vital Signs Temp Pulse Resp BP Pulse Ox 97.5 F L 73 24 104/60 93 L 10/24/22 21:35 10/24/22 21:35 10/24/22 21:35 10/24/22 21:35 10/24/22 21:35 Results - Labs 10/28/22 06:15 10/28/22 06:15 Abnormal Lab Results - Last 24 Hours (Table) 10/28/22 10/28/22 Range/Units 06:15 06:15 WBC 10.7 H (3.8-10.6) k/uL Hgb 11.6 L (13.0-17.5) gm/dL Hct 35.3 L (39.0-53.0) % Neutrophils # 8.6 H (1.3-7.7) k/uL Sodium 133 L (137-145) mmol/L Potassium 3.4 L (3.5-5.1) mmol/L Carbon Dioxide 20 L (22-30) mmol/L Calcium 7.7 L (8.4-10.2) mg/dL Total Protein 5.1 L (6.3-8.2) g/dL Albumin 2.8 L (3.5-5.0) g/dL Diabetes panel 10/28/22 Range/Units 06:15 Sodium 133 L (137-145) mmol/L Potassium 3.4 L (3.5-5.1) mmol/L Chloride 103 (98-107) mmol/L Carbon Dioxide 20 L (22-30) mmol/L BUN 12 (9-20) mg/dL Creatinine 0.73 (0.66-1.25) mg/dL Glucose 96 (74-99) mg/dL Calcium 7.7 L (8.4-10.2) mg/dL AST 18 (17-59) U/L ALT 15 (4-49) U/L Alkaline Phosphatase 63 (38-126) U/L Total Protein 5.1 L (6.3-8.2) g/dL Albumin 2.8 L (3.5-5.0) g/dL Calcium panel 10/28/22 Range/Units 06:15 Calcium 7.7 L (8.4-10.2) mg/dL Albumin 2.8 L (3.5-5.0) g/dL Pituitary panel 10/28/22 Range/Units 06:15 Sodium 133 L (137-145) mmol/L Potassium 3.4 L (3.5-5.1) mmol/L Chloride 103 (98-107) mmol/L Carbon Dioxide 20 L (22-30) mmol/L BUN 12 (9-20) mg/dL Creatinine 0.73 (0.66-1.25) mg/dL Glucose 96 (74-99) mg/dL Calcium 7.7 L (8.4-10.2) mg/dL Adrenal panel 10/28/22 Range/Units 06:15 Sodium 133 L (137-145) mmol/L Potassium 3.4 L (3.5-5.1) mmol/L Chloride 103 (98-107) mmol/L Carbon Dioxide 20 L (22-30) mmol/L BUN 12 (9-20) mg/dL Creatinine 0.73 (0.66-1.25) mg/dL Glucose 96 (74-99) mg/dL Calcium 7.7 L (8.4-10.2) mg/dL Total Bilirubin 1.1 (0.2-1.3) mg/dL AST 18 (17-59) U/L ALT 15 (4-49) U/L Alkaline Phosphatase 63 (38-126) U/L Total Protein 5.1 L (6.3-8.2) g/dL Albumin 2.8 L (3.5-5.0) g/dL
--- NOTE | 2022-10-28 17:03 | P.PN ---
Subjective Progress Note Date: 10/28/22 This is a 57 year old male with medical history of hyperlipidemia, gout, MRSA infection to the left thigh, current daily smoker and also marijuana use. Presents to the hospital with 1 day onset of abdominal pain rating 10/10 diffuse with focal tenderness epigastric region. Patient is admitted for acute chung creatitis with abdominal pelvis CT showing acute edematous interstitial pancreatitis with no surrounding organized peripancreatic fluid collections with reactive duodenitis. Patient reports he was camping and a a large meal with macanese food and cheese and also drank about a case of beer. He does deny daily drinking. He than began experiencing abdominal pain. No nausea or vomiting report, he does feel like he needs to have a bowel movement. He is denying chest pain, no shortness of breath, no fever or chills. White count is 13.3 on admission, BUN 22, creatinine 1.49, blood glucose 136, lactic acid of 2.6, troponin level negative, amylase is 5595, lipase is greater than 20,000. Patient is being hydrated with normal saline at 130mls/hr, receiving pain management and bowel rest. Diet is downgraded to NPO. 10/26/2022 Patient is evaluated today on the medical floor. He has been NPO overnight and today states improvement in abdominal pain with minimal epigastric tenderness to palpation on assessment. Amylase and lipase are trending down. Diet will be advanced to clear liquid and will f/u labs in the AM. Patient does have significant tenderness to the right upper quadrant on exam and will f/u with a CMP in the AM with f/u imaging if symptoms are not improving. Patient does report he has been having similar symptoms as this especially after eating over the last [address] does also reveal lateral right middle lobe and lower lobe subsegmental atelectasis and patient will be offered an incentive spirometer. Prostate is also enlarged at 5.4 cm in transverse dimension with prostate calcifications. 10/27/2022 Patient evaluated on the medical floor he continues with significant right upper quad abdominal tenderness on exam and also has diffuse generalized abdominal pain. Has history of kidney stones also, does state he has been having issues with weakened stream lately and recommending post void residuals to monitor for urinary retention. Amylase and lipase are improving however patient does have elevated bilirubin level today and will need f/u imaging to rule out gallstone pancreatitis. Patient is resumed on normal saline secondary to drop in sodium if it continues to drop patient may need to be fluid restricted possibly SIADH from pain. 10/28/2022 Patient evaluated today sitting at the bedside. He is tolerating a clear liquid diet currently. No fever/chills. He had abdominal ultrasound done showing hepatomegaly with underlying hepatic steatosis, adherent gallstones vs. polyps, splenomegaly, proximal abdominal aortic aneurysm measuring 3.4 cm. General surgery was consulted for further evaluation and patient is being evaluated for possible cholecystectomy. Surgery requesting cardiac clearance and consult was placed today. Echocardiogram is ordered and pending. A f/u EKG was done showing normal sinus rhythm heart rate of [address] or T wave changes evident. Total bilirubin is normal 1.1 today. Sodium 133, potassium 3.4. Review of Systems Constitutional: Denied any fatigue denied any fever. Cardio vascular: denied any chest pain, palpitations Gastrointestinal: denied any nausea, vomiting, diarrhea has right and epigastric abdominal pain and flank pain. Pulmonary: Denied any shortness of breath cough Neurologic denied any new focal deficits All inpatient medications were reviewed and appropriate changes in these medic ations as dictated in the interval history and assessment and plan. PHYSICAL EXAMINATION: GENERAL: The patient is alert and oriented x3, not in any acute distress. Well developed, well nourished. HEENT: Pupils are round and equally reacting to light. EOMI. No scleral icterus. No conjunctival pallor. Normocephalic, atraumatic. No pharyngeal erythema. No thyromegaly. CARDIOVASCULAR: S1 and S2 present. No murmurs, rubs, or gallops. PULMONARY: Chest is clear to auscultation, no wheezing or crackles. ABDOMEN: Soft, tender mild epigastric and also RUQ abdominal pain,has bilateral CVA tenderness. nondistended, normoactive bowel sounds. Liver border is palpable. MUSCULOSKELETAL: No joint swelling or deformity. EXTREMITIES: No cyanosis, clubbing, or pedal edema. NEUROLOGICAL: Gross neurological examination did not reveal any focal deficits. SKIN: No rashes. Assessment and plan Acute pancreatitis with reactive duodenitis secondary to diet and alcohol use Hyperbilirubinemia has normalized abdominal ultrasound showing gallstones possible gallstone pancreatitis Acute on chronic RUQ abdominal pain Leukocytosis Prostatomegaly f/u with urology on dc and monitor for urinary retention History hyperlipidemia Hyperglycemia hemoglobin A1C of 5.4 and blood glucose has normalized, no evide nce to consider diabetes mellitus at this time. Chronic and ongoing nicotine use counseled on cessation and patient is denying nicotine patch at this time History of kidney stones Marijuana use GI prophylaxis DVT prophylaxis Full Code Plan Diet has been advanced to clear liquid pending further recommendations from general surgery possible cholecystecomy. Cardiology consultation for cardiac clearance. Echocardiogram pending. F/U labs amylase and lipase in the AM as well as CMP. Educated on alcohol cessation and diet modification Patient to follow up with GI services and urology on discharge The impression and plan of care has been dictated by Nurse Bobby Ochoa as directed. Dr. Amol MD I have performed a history and physical examination and medical decision making of this patient, discussed the same with the dictator, and agree with the dictat ors assessment and plan as written, documented as a scribe. Based on total visit time, I have performed more than 50% of this visit. Objective - Vital Signs Vital signs: Vital Signs Temp 97.8 F 10/28/22 13:32 Pulse 94 10/28/22 13:32 Resp 17 10/28/22 13:32 BP 129/83 10/28/22 13:32 Pulse Ox 98 10/28/22 13:32 FiO2 Intake & Output 10/27/22 10/28/22 10/28/22 18:59 06:59 18:59 Intake Total 0 Output Total 160 700 97 Balance -160 -700 -97 Intake: Oral 0 Output: Urine 700 Post Void Residual 160 97 Other: Voiding Method Urinal # Voids 3 - Labs CBC & Chem 7: 10/28/22 06:15 10/28/22 06:15 Labs: Abnormal Lab Results - Last 24 Hours (Table) 10/28/22 10/28/22 Range/Units 06:15 06:15 WBC 10.7 H (3.8-10.6) k/uL Hgb 11.6 L (13.0-17.5) gm/dL Hct 35.3 L (39.0-53.0) % Neutrophils # 8.6 H (1.3-7.7) k/uL Sodium 133 L (137-145) mmol/L Potassium 3.4 L (3.5-5.1) mmol/L Carbon Dioxide 20 L (22-30) mmol/L Calcium 7.7 L (8.4-10.2) mg/dL Total Protein 5.1 L (6.3-8.2) g/dL Albumin 2.8 L (3.5-5.0) g/dL Assessment and Plan Time with Patient: Less than 30
[2022-10-28] MEDS: TEMAZEPAM 7.5 MG CAP PO PRN (20:42)
[2022-10-28] MEDS: ATORVASTATIN 20 MG TAB PO SCH (20:42)
[2022-10-29] MEDS: SODIUM CHLORIDE 0.9% 1,000 ML IV SCH ×2 (04:37→16:50)
[2022-10-29] MEDS: NICOTINE 21MG/24HR PATCH TRANSDERM SCH ×2 (06:05→09:34)
[2022-10-29 06:24] LABS: African American GFR (CKD) >90 (>60 ml/min/1.73 sqM); Amylase 239 U/L (30-110); Anion Gap 9 mmol/L; Blood Urea Nitrogen 10 mg/dL (9-20); Carbon Dioxide 22 mmol/L (22-30); Chloride 101 mmol/L (98-107); Glucose 115 mg/dL (74-99); Lipase 1045 U/L (23-300); Non-African American GFR(CKD) >90 (>60 ml/min/1.73 sqM); Potassium 3.6 mmol/L (3.5-5.1); Sodium 132 mmol/L (137-145)
[2022-10-29] MEDS: allopurinoL 100 MG TAB PO SCH ×2 (08:16→23:12)
[2022-10-29] MEDS: PANTOPRAZOLE 40 MG/10 ML VIAL IVP SCH ×2 (08:16→23:12)
[2022-10-29] MEDS: DULoxetine HCL 60 MG CAPSULE.DR PO SCH (08:16)
[2022-10-29] MEDS: HYDROmorphone 1 MG/ML 1 ML SYRINGE IVP PRN (08:17)
--- NOTE | 2022-10-29 08:56 | P.CRDCN ---
History of Present Illness Consult date: 10/29/22 Chief complaint: abdominal discomfort History of present illness: The patient is a very pleasant 57-year-old gentleman with smoking and overweight presented to the hospital complaint of abdominal discomfort and back discomfort. The patient was diagnosed with acute pancreatitis and he was found to have gallstone bladder. He reports no pain in the chest. He does have shortness of breath with exertion appeared to be chronic. He is known to have smoking and COPD. Further cardiac workup including EKG was performed and showed sinus mechanism was no ischemic ST or T-wave abnormalities and also an echo is in process to be done. The patient lives at home and he stated that he can go 2 flights of stairs without any symptoms of chest pain or chest discomfort. No history of coronary artery disease or congestive heart failure or any cardiac arrhythmia and the patient never seen by a client program manager in the past. The examination is remarkable for regular rhythm with clear breathing sounds bilaterally and no lower extremity edema noted Assessment Gallbladder pancreatitis History of smoking Overweight Plan Obtain an echo for further risk stratification Further recommendation to follow the echocardiogram Past Medical History Past Medical History: No Reported History, Hyperlipidemia Additional Past Medical History / Comment(s): Gout History of Any Multi-Drug Resistant Organisms: MRSA Date of last positivie culture/infection: 1999 MDRO Source:: Left Thigh Additional Past Surgical History / Comment(s): graft Past Anesthesia/Blood Transfusion Reactions: No Reported Reaction Past Psychological History: No Psychological Hx Reported Smoking Status: Current every day smoker Past Alcohol Use History: Daily Past Drug Use History: None Reported, Marijuana Medications and Allergies Home Medications Medication Instructions Recorded Confirmed Type Atorvastatin [Lipitor] 20 mg PO HS 10/24/22 10/24/22 History DULoxetine HCL [Cymbalta] 60 mg PO DAILY 10/24/22 10/24/22 History Meloxicam [Mobic] 15 mg PO HS 10/24/22 10/24/22 History Omeprazole 40 mg PO DAILY PRN 10/24/22 10/24/22 History Terbinafine [LamISIL] 250 mg PO DAILY 10/24/22 10/24/22 History allopurinoL 100 mg PO BID 10/24/22 10/24/22 History methocarbamoL [Robaxin-750] 750 mg PO TID PRN 10/24/22 10/24/22 History Allergies Allergy/AdvReac Type Severity Reaction Status Date / Time No Known Allergies Allergy Verified 10/24/22 22:29 Physical Exam Vitals: Vital Signs Temp Pulse Resp BP Pulse Ox 10/29/22 07:17 98.3 F 90 18 119/77 97 10/29/22 01:41 98.7 F 91 16 112/69 96 10/28/22 20:45 16 10/28/22 19:56 99.2 F 90 16 114/67 97 10/28/22 13:32 97.8 F 94 17 129/83 98 Intake and Output 10/28/22 10/29/22 10/29/22 22:59 06:59 14:59 Intake Total 500 Output Total 200 Balance 300 Intake: Intake, IV Titration 500 Amount Sodium Chloride 0.9% 1, 500 000 ml @ 75 mls/hr IV . [id number] [facility] Rx#:[id number] Output: Urine 200 Other: Voiding Method Urinal # Voids 1 Results 10/28/22 06:15 10/29/22 05:57 Comprehensive Metabolic Panel 10/29/22 Range/Units 05:57 Sodium 132 L (137-145) mmol/L Potassium 3.6 (3.5-5.1) mmol/L Chloride 101 (98-107) mmol/L Carbon Dioxide 22 (22-30) mmol/L BUN 10 (9-20) mg/dL Creatinine 0.74 (0.66-1.25) mg/dL Glucose 115 H (74-99) mg/dL Calcium 8.0 L (8.4-10.2) mg/dL Current Medications Generic Name Dose Route Start Last Admin Trade Name Freq PRN Reason Stop Dose Admin Acetaminophen 650 mg 10/25/22 00:20 Acetaminophen Tab 325 Mg Tab PO Q6HR PRN Mild Pain or Fever > 100.5 Al Hydroxide/Mg Hydroxide 15 ml 10/25/22 00:20 10/26/22 20:22 Mag Hydrox/Al Hydrox/Simeth 30 Ml Cup PO 15 ml Q6HR PRN Administration Indigestion Allopurinol 100 mg 10/25/22 21:00 10/29/22 08:16 Allopurinol 100 Mg Tab PO 100 mg BID WESLEY Administration Atorvastatin Calcium 20 mg 10/25/22 21:00 10/28/22 20:42 Atorvastatin 20 Mg Tab PO 20 mg HS W[facility]LEY Administration Duloxetine HCl 60 mg 10/26/22 09:00 10/29/22 08:16 Duloxetine Hcl 60 Mg Capsule.Dr PO 60 mg DAILY [facility] Administration Hydromorphone HCl 1 mg 10/25/22 00:20 10/29/22 08:17 Hydromorphone 1 Mg/Ml 1 Ml Syringe IVP 1 mg Q3HR PRN Administration Severe Pain (Scale 7 to 10) Hydromorphone HCl 0.5 mg 10/25/22 00:20 10/28/22 03:19 Hydromorphone 0.5 Mg/0.5 Ml Syringe IVP 0.5 mg Q3HR PRN Administration Moderate Pain (Scale 4 to 6) Sodium Chloride 1,000 mls @ 75 mls/hr 10/27/22 10:00 10/29/22 04:37 Saline 0.9% IV Not Given .[id number] [facility] Ketorolac Tromethamine 15 mg 10/25/22 14:56 10/27/22 13:10 Ketorolac 15 Mg/Ml 1 Ml Vial IVP 10/30/22 14:56 15 mg Q6HR PRN Administration Pain Naloxone HCl 0.2 mg 10/25/22 00:20 Naloxone 0.4 Mg/Ml 1 Ml Vial IV Q2M PRN Opioid Reversal Nicotine 1 patch 10/29/22 05:59 10/29/22 06:05 Nicotine 21mg/24hr Patch TRANSDERM 1 patch DAILY WESLEY Administration Ondansetron HCl 4 mg 10/25/22 00:20 Ondansetron 4 Mg/2 Ml Vial IVP Q8HR PRN Nausea And Vomiting Pantoprazole Sodium 40 mg 10/25/22 21:00 10/29/22 08:16 Pantoprazole 40 Mg/10 Ml Vial IVP 40 mg BID WESLEY Administration Temazepam 7.5 mg 10/25/22 19:55 10/28/22 20:42 Temazepam 7.5 Mg Cap PO 7.5 mg HS PRN Administration Insomnia Intake and Output 10/28/22 10/29/22 10/29/22 22:59 06:59 14:59 Intake Total 500 Output Total 200 Balance 300 Intake: Intake, IV Titration 500 Amount Sodium Chloride 0.9% 1, 500 000 ml @ 75 mls/hr IV . [id number] [facility] Rx#:[id number] Output: Urine 200 Other: Voiding Method Urinal # Voids 1 10/28/22 06:15 10/29/22 05:57
[2022-10-29] MEDS: MAG HYDROX/AL HYDROX/SIMETH 30 ML CUP PO PRN (09:34)
--- NOTE | 2022-10-29 09:58 | CA ---
Transthoracic Echo Report Name: Dilan Suarez Age: 57 Gender: M : 1965 Exam Date: 10/28/2022 14:25 Exam Location: [place] [facility] Ht (in): 72 Wt (lb): 260 Ordering Physician: Rosie Guerra Attending/Referring Phys: Inspector Technician Mitchell Urbina Procedure CPT: Indications: pre-op clearance, check EF Cardiac Hx: Technical Quality: Fair Contrast 1: Lumason Total Dose (mL): 5 Contrast 2: Agitated Saline Total Dose (mL): 10 MEASUREMENTS (Male / Female) Normal Values 2D ECHO LV Diastolic Diameter PLAX 4.7 cm 4.2 - 5.9 / 3.9 - 5.3 cm LV Systolic Diameter PLAX 3.3 cm IVS Diastolic Thickness 0.9 cm 0.6 - 1.0 / 0.6 - 0.9 cm LVPW Diastolic Thickness 1.3 cm 0.6 - 1.0 / 0.6 - 0.9 cm LV Relative Wall Thickness 0.5 RV Internal Dim ED PLAX 2.8 cm LVOT Diameter 2.3 cm Aortic Root Diameter 3.1 cm LA Systolic Diameter LX 2.9 cm 3.0 - 4.0 / 2.7 - 3.8 cm LV Diastolic Volume MOD BP 67.5 cm??? 67 - 155 / 56 - 104 cm??? LV Systolic Volume MOD BP 36.7 cm??? 22 - 58 / 19 - 49 cm??? LV Ejection Fraction MOD BP 45.7 % >= 55 % LV Diastolic Volume MOD 4C 71.8 cm??? LV Systolic Volume MOD 4C 41.6 cm??? LV Ejection Fraction MOD 4C 42.0 % LV Diastolic Length 4C 6.8 cm LV Systolic Length 4C 6.0 cm LV Diastolic Volume MOD 2C 63.2 cm??? LV Systolic Volume MOD 2C 27.7 cm??? LV Ejection Fraction MOD 2C 56.1 % LV Diastolic Length 2C 6.6 cm LV Systolic Length 2C 5.7 cm LA Volume 59.6 cm??? 18 - 58 / 22 - 52 cm??? DOPPLER AV Peak Velocity 155.8 cm/s AV Peak Gradient 9.7 mmHg LVOT Peak Velocity 88.4 cm/s LVOT Peak Gradient 3.1 mmHg AV Area Cont Eq pk 2.4 cm??? Mitral E Point Velocity 102.9 cm/s Mitral A Point Velocity 96.0 cm/s Mitral E to A Ratio 1.1 MV Deceleration Time 190.0 ms TR Peak Velocity 213.4 cm/s TR Peak Gradient 18.2 mmHg Right Ventricular Systolic Press 23.2 mmHg PV Peak Velocity 105.7 cm/s PV Peak Gradient 4.5 mmHg FINDINGS Left Ventricle Left ventricular ejection fraction is estimated at 55-60 %. Right Ventricle Normal right ventricular size. Right Atrium Normal right atrial size. Left Atrium Normal left atrial size. Mitral Valve Mitral valve not well visualized. Mild MR. Aortic Valve Trileaflet aortic valve. Tricuspid Valve Structurally normal tricuspid valve. Mild TR. Pulmonic Valve Pulmonic valve not well visualized. No PI. Pericardium Not well visualized. Aorta Normal size aortic root and proximal ascending aorta. CONCLUSIONS Technically difficult study for interpretation Normal LV systolic function Previewed by: Dr. Keith Yoo MD (Electronically Signed) Final Date: 29 October 2022 09:57
--- NOTE | 2022-10-29 13:32 | P.PN ---
Subjective Progress Note Date: 10/29/22 CHIEF COMPLAINT: Abdominal pain HISTORY OF PRESENT ILLNESS: Patient reports that he feels slightly better today. Does complain of diffuse abdominal pain mostly above the umbilicus. He has been requiring the IV Dilaudid. He is able to tolerate clear liquids. He denies any nausea or vomiting. He is having flatus. No bowel movement. Patient seen by cardiology service. Echo shows a normal LV systolic function. Afebrile. WBC is 10.7 sodium 132 potassium 3.6 creatinine 0.74 amylase 239 and lipase trending down to 1045 PHYSICAL EXAM: VITAL SIGNS: Reviewed GENERAL: Well-developed in no acute distress. HEENT: No sclera icterus. Extraocular movements grossly intact. Moist buccal mucosa. Head is atraumatic, normocephalic. Hears conversational speech. No nasal drainage. NECK: Supple without lymphadenopathy. CHEST: Non-labored respirations and equal bilateral excursions. CARDIOVASCULAR: Palpable 2+ radial pulses. ABDOMEN: Soft. Obese. Nondistended. Tenderness in the epigastric, right upper quadrant and above the umbilicus MUSCULOSKELETAL: No clubbing or cyanosis. NEUROLOGIC: No focal or lateralizing signs. Cranial nerves II through XII grossly intact. PSYCH: Appropriate affect. Alert and oriented to person, place and time. SKIN: Well perfused. Good skin turgor. ASSESSMENT: 1. Acute pancreatitis with possible gallstones noted on ultrasound. Pain did occur after [place] food and alcohol use 2. Hypokalemia resolved 3. Abdominal aortic aneurysm 4. Hyperlipidemia PLAN: -Continue clear liquids -Continue pain management -Awaiting cardiology risk assessment -Robotic cholecystectomy tentatively scheduled for , 10/31/2022 -Continue supportive care -Continue IV fluids and pain management. Medicine service has added [place]. Physician Gravity Meter Observer note has been reviewed by physician. Signing provider agrees with the documented findings, assessment, and plan of care. Objective - Vital Signs Vital signs: Vital Signs Temp 97.3 F L 10/29/22 11:36 Pulse 92 10/29/22 11:36 Resp 18 10/29/22 11:36 BP 118/77 10/29/22 11:36 Pulse Ox 99 10/29/22 11:36 FiO2 Intake & Output 10/28/22 10/29/22 10/29/22 18:59 06:59 18:59 Intake Total 500 Output Total 97 200 Balance -97 300 Intake: Intake, IV Titration 500 Amount Sodium Chloride 0.9% 1, 500 000 ml @ 75 mls/hr IV . [id number] [facility] Rx#:[id number] Output: Urine 200 Post Void Residual 97 Other: Voiding Method Urinal # Voids 1 - Labs CBC & Chem 7: 10/28/22 06:15 10/29/22 05:57 Labs: Abnormal Lab Results - Last 24 Hours (Table) 10/29/22 Range/Units 05:57 Sodium 132 L (137-145) mmol/L Glucose 115 H (74-99) mg/dL Calcium 8.0 L (8.4-10.2) mg/dL Amylase 239 H (30-110) U/L Lipase 1045 H (23-300) U/L
[2022-10-29 15:20] VITALS: BMI 35.2
[2022-10-29] MEDS: HYDROcodone/APAP 5-325MG 1 EACH TAB PO PRN (16:49)
[2022-10-29] MEDS: ATORVASTATIN 20 MG TAB PO SCH (23:11)
[2022-10-30] MEDS: HYDROcodone/APAP 5-325MG 1 EACH TAB PO PRN ×4 (00:49→23:40)
[2022-10-30] MEDS: SODIUM CHLORIDE 0.9% 1,000 ML IV SCH ×2 (00:51→18:18)
--- NOTE | 2022-10-30 05:53 | P.PN ---
Subjective Progress Note Date: 10/29/22 This is a 57 year old male with medical history of hyperlipidemia, gout, MRSA infection to the left thigh, current daily smoker and also marijuana use. Presents to the hospital with 1 day onset of abdominal pain rating 10/10 diffuse with focal tenderness epigastric region. Patient is admitted for acute pancreatitis with abdominal pelvis CT showing acute edematous interstitial pancreatitis with no surrounding organized peripancreatic fluid collections with reactive duodenitis. Patient reports he was camping and a a large meal with [place] food and cheese and also drank about a case of beer. He does deny daily drinking. He than began experiencing abdominal pain. No nausea or vomiting report, he does feel like he needs to have a bowel movement. He is denying chest pain, no shortness of breath, no fever or chills. White count is 13.3 on admission, BUN 22, creatinine 1.49, blood glucose 136, lactic acid of 2.6, troponin level negative, amylase is 5595, lipase is greater than 20,000. Patient is being hydrated with normal saline at 130mls/hr, receiving pain management and bowel rest. Diet is downgraded to NPO. 10/26/2022 Patient is evaluated today on the medical floor. He has been NPO overnight and today states improvement in abdominal pain with minimal epigastric tenderness to palpation on assessment. Amylase and lipase are trending down. Diet will be advanced to clear liquid and will f/u labs in the AM. Patient does have significant tenderness to the right upper quadrant on exam and will f/u with a CMP in the AM with f/u imaging if symptoms are not improving. Patient does report he has been having similar symptoms as this especially after eating over the last [address] does also reveal lateral right middle lobe and lower lobe subsegmental atelectasis and patient will be offered an incentive spirometer. Prostate is also enlarged at 5.4 cm in transverse dimension with prostate calcifications. 10/27/2022 Patient evaluated on the medical floor he continues with significant right upper quad abdominal tenderness on exam and also has diffuse generalized abdominal pain. Has history of kidney stones also, does state he has been having issues with weakened stream lately and recommending post void residuals to monitor for urinary retention. Amylase and lipase are improving however patient does have elevated bilirubin level today and will need f/u imaging to rule out gallstone pancreatitis. Patient is resumed on normal saline secondary to drop in sodium if it continues to drop patient may need to be fluid restricted possibly SIADH from pain. 10/28/2022 Patient evaluated today sitting at the bedside. He is tolerating a clear liquid diet currently. No fever/chills. He had abdominal ultrasound done showing hepatomegaly with underlying hepatic steatosis, adherent gallstones vs. polyps, splenomegaly, proximal abdominal aortic aneurysm measuring 3.4 cm. General surgery was consulted for further evaluation and patient is being evaluated for possible cholecystectomy. Surgery requesting cardiac clearance and consult was placed today. Echocardiogram is ordered and pending. A f/u EKG was done showing normal sinus rhythm heart rate of [address] or T wave changes evident. Total bilirubin is normal 1.1 today. Sodium 133, potassium 3.4. 10/29/2022 Patient is seen and evaluated in follow-up today with general surgery following. Patient maintained on IV hydration and being monitored for pancreatitis. Patient continues to report abdominal pain and tentatively being scheduled for possible acute cholecystectomy with Dr. Eisenberg general surgery. Scheduled for possibly this . Awaiting cardiology clearance for surgery. Patient is currently afebrile denies chest pain or shortness of breath. Patient has intermittent abdominal pain and cramping and continued on clear liquids. Recommend follow-up labs in the a.m. and will continue to monitor closely Review of Systems Constitutional: Denied any fatigue denied any fever. Cardio vascular: denied any chest pain, palpitations Gastrointestinal: denied any nausea, vomiting, diarrhea has right and epigastric abdominal pain and flank pain. Pulmonary: Denied any shortness of breath cough Neurologic denied any new focal deficits All inpatient medications were reviewed and appropriate changes in these medications as dictated in the interval history and assessment and plan. PHYSICAL EXAMINATION: GENERAL: The patient is alert and oriented x3, obese. Well developed, well nourished. HEENT: Pupils are round and equally reacting to light. EOMI. No scleral icterus. No conjunctival pallor. Normocephalic, atraumatic. No pharyngeal erythema. No thyromegaly. CARDIOVASCULAR: S1 and S2 muffled PULMONARY: Diminished breath sounds bilaterally with no wheezing or crackles. ABDOMEN: Soft, obese, tender mild epigastric and also RUQ abdominal pain, has bilateral CVA tenderness. nondistended, normoactive bowel sounds. Liver border is palpable. MUSCULOSKELETAL: No joint swelling or deformity. EXTREMITIES: No cyanosis, clubbing, or pedal edema. NEUROLOGICAL: Gross neurological examination did not reveal any focal deficits. SKIN: No rashes. Assessment: Acute pancreatitis with reactive duodenitis secondary to diet and alcohol use Hyperbilirubinemia has normalized abdominal ultrasound showing gallstones possible gallstone pancreatitis Acute on chronic RUQ abdominal pain Leukocytosis, trending down Prostatomegaly f/u with urology on dc and monitor for urinary retention History hyperlipidemia Hyperglycemia hemoglobin A1C of 5.4 and blood glucose has normalized, no evidence to consider diabetes mellitus at this time. Chronic and ongoing nicotine use counseled on cessation and patient is denying nicotine patch at this time History of kidney stones Marijuana use GI prophylaxis DVT prophylaxis Full Code Plan: Diet has been advanced to clear liquid per general surgery possible cholecystecomy tentatively scheduled for . Cardiology following for cardiac clearance. Echocardiogram was done Recommend follow-up labs in the a.m. Patient continues with abdominal pain requesting IV Dilaudid and will add [place] in addition for breakthrough pain Educated on alcohol cessation and diet modification Patient to follow up with GI services and urology on discharge Due To multiple complex medical issues, prognosis is guarded The impression and plan of care has been dictated by Bisi Montgomery, Nurse Practitioner as directed. Dr. Raheem MD I have performed a history and examination and MDM of this patient, discussed the same with the dictator, and agree with the dictator's assessment and plan as written ,documented as a scribe. Based on total visit time, I have performed more than 50% of the visit. Objective - Vital Signs Vital signs: Vital Signs Temp 97.3 F L 10/29/22 11:36 Pulse 92 10/29/22 11:36 Resp 18 10/29/22 11:36 BP 118/77 10/29/22 11:36 Pulse Ox 99 10/29/22 11:36 FiO2 Intake & Output 10/28/22 10/29/22 10/29/22 18:59 06:59 18:59 Intake Total 500 Output Total 97 200 Balance -97 300 Intake: Intake, IV Titration 500 Amount Sodium Chloride 0.9% 1, 500 000 ml @ 75 mls/hr IV . [id number] [facility] Rx#:[id number] Output: Urine 200 Post Void Residual 97 Other: Voiding Method Urinal # Voids 1 - Labs CBC & Chem 7: 10/28/22 06:15 10/29/22 05:57 Labs: Abnormal Lab Results - Last 24 Hours (Table) 10/29/22 Range/Units 05:57 Sodium 132 L (137-145) mmol/L Glucose 115 H (74-99) mg/dL Calcium 8.0 L (8.4-10.2) mg/dL Amylase 239 H (30-110) U/L Lipase 1045 H (23-300) U/L
[2022-10-30 07:43] LABS: HCT 39.2 % (39.0-53.0); HGB 12.9 gm/dL (13.0-17.5); MCH 26.2 pg (25.0-35.0); MCV 79.3 fL (80.0-100.0); Mean Platelet Volume 7.9; Platelet Count 292 k/uL (150-450); RBC 4.95 m/uL (4.30-5.90); RDW 14.3 % (11.5-15.5); WBC 12.6 k/uL (3.8-10.6)
[2022-10-30 07:52] LABS: African American GFR (CKD) >90 (>60 ml/min/1.73 sqM); Amylase 245 U/L (30-110); Anion Gap 13 mmol/L; Blood Urea Nitrogen 11 mg/dL (9-20); Carbon Dioxide 24 mmol/L (22-30); Chloride 99 mmol/L (98-107); Glucose 109 mg/dL (74-99); Lipase 1041 U/L (23-300); Non-African American GFR(CKD) >90 (>60 ml/min/1.73 sqM); Potassium 3.9 mmol/L (3.5-5.1); Sodium 136 mmol/L (137-145)
[2022-10-30] MEDS: PANTOPRAZOLE 40 MG/10 ML VIAL IVP SCH ×2 (08:57→21:05)
[2022-10-30] MEDS: allopurinoL 100 MG TAB PO SCH ×2 (08:57→21:05)
[2022-10-30] MEDS: NICOTINE 21MG/24HR PATCH TRANSDERM SCH (08:57)
[2022-10-30] MEDS: DULoxetine HCL 60 MG CAPSULE.DR PO SCH (08:57)
--- NOTE | 2022-10-30 10:36 | P.PN ---
Subjective Progress Note Date: 10/30/22 HISTORY OF PRESENT ILLNESS: The patient is a very pleasant 57-year-old gentleman with smoking and overweight presented to the hospital complaint of abdominal discomfort and back discomfort. The patient was diagnosed with acute pancreatitis and he was found to have gallstone bladder. He reports no pain in the chest. He does have shortness of breath with exertion appeared to be chronic. He is known to have smoking and COPD. Further cardiac workup including EKG was performed and showed sinus mechanism was no ischemic ST or T-wave abnormalities and also an echo is in process to be done. The patient lives at home and he stated that he can go 2 flights of stairs without any symptoms of chest pain or chest discomfort. No history of coronary artery disease or congestive heart failure or any cardiac arrhythmia and the patient never seen by a concierge receptionist in the past. The examination is remarkable for regular rhythm with clear breathing sounds bilaterally and no lower extremity edema noted 10/30/2022 Patient examined this morning at the bedside. Patient denies chest pain or pressure. He denies shortness of breath. Echocardiogram completed revealing preserved systolic function with an ejection fraction of 50-55% with mild TR and mild MR. Vital signs are stable. PHYSICAL EXAM: VITAL SIGNS: Reviewed. GENERAL: Well-developed in no acute distress. NECK: Supple. No JVD or thyromegaly LUNGS: Respirations even and unlabored. Lungs essentially clear to auscultation bilaterally. HEART: Regular rate and rhythm. S1 and S2 heard. EXTREMITIES: Normal range of motion. No clubbing or cyanosis. Peripheral pulses intact. No lower extremity edema ASSESSMENT: Acute pancreatitis Gallstones Hyperlipidemia PLAN: Patient is tentatively scheduled for robotic cholecystectomy tomorrow with general surgery Continue current cardiac medications There are no contraindications from a cardiac standpoint for patient to undergo surgery Further recommendations pending patient course Nurse practitioner note has been reviewed by physician. Signing provider agrees with the documented findings, assessment, and plan of care. Objective - Vital Signs Vital signs: Vital Signs Temp 97.4 F L 10/30/22 07:08 Pulse 94 10/30/22 07:08 Resp 20 10/30/22 07:08 BP 108/67 10/30/22 07:08 Pulse Ox 99 10/30/22 07:08 FiO2 Intake & Output 10/29/22 10/30/22 10/30/22 18:59 06:59 18:59 Intake Total 540 Balance 540 Weight 117.934 kg Intake: Oral 540 - Labs CBC & Chem 7: 10/30/22 06:52 10/30/22 06:52 Labs: Abnormal Lab Results - Last 24 Hours (Table) 10/30/22 10/30/22 Range/Units 06:52 06:52 WBC 12.6 H (3.8-10.6) k/uL Hgb 12.9 L (13.0-17.5) gm/dL MCV 79.3 L (80.0-100.0) fL Sodium 136 L (137-145) mmol/L Glucose 109 H (74-99) mg/dL Amylase 245 H (30-110) U/L Lipase 1041 H (23-300) U/L
[2022-10-30] MEDS: MAG HYDROX/AL HYDROX/SIMETH 30 ML CUP PO PRN (11:28)
[2022-10-30] MEDS: PIPERACILLIN-TAZOBACTAM 3.375 GM in SODIUM CHLORIDE 0.9% 100 ML IVPB SCH ×2 (11:28→18:17)
--- NOTE | 2022-10-30 12:51 | P.PN ---
Subjective Progress Note Date: 10/30/22 CHIEF COMPLAINT: Abdominal pain HISTORY OF PRESENT ILLNESS: Patient is sitting up at bedside chair. He reports that he is feeling better today. Pain is decreasing. Patient denies any nausea or vomiting. It has been a few days since his last bowel movement. Patient has been seen by cardiology and has received cardiac clearance. Afebrile. WBC has increased from 10.7-12.6 hemoglobin 12.9 sodium is 136 potassium 3.9 creatinine 0.83 lipase staying about the same at 1041 PHYSICAL EXAM: VITAL SIGNS: Reviewed GENERAL: Well-developed in no acute distress. HEENT: No sclera icterus. Extraocular movements grossly intact. Moist buccal mucosa. Head is atraumatic, normocephalic. Hears conversational speech. No nasal drainage. NECK: Supple without lymphadenopathy. CHEST: Non-labored respirations and equal bilateral excursions. CARDIOVASCULAR: Palpable 2+ radial pulses. ABDOMEN: Soft. Obese. Nondistended. Epigastric tenderness has improved. Patient does have tenderness above the umbilicus and mild right upper quadrant tenderness MUSCULOSKELETAL: No clubbing or cyanosis. NEUROLOGIC: No focal or lateralizing signs. Cranial nerves II through XII grossly intact. PSYCH: Appropriate affect. Alert and oriented to person, place and time. SKIN: Well perfused. Good skin turgor. ASSESSMENT: 1. Gallstone pancreatitis 2. Hypokalemia resolved 3. Abdominal aortic aneurysm 4. Hyperlipidemia PLAN: -Patient scheduled for laparoscopic cholecystectomy tomorrow -Advance diet to full liquids today -Nothing by mouth after midnight -Antibiotics added due to elevated white count. Repeat labs in a.m. Physician Receiver note has been reviewed by physician. Signing provider agrees with the documented findings, assessment, and plan of care. Objective - Vital Signs Vital signs: Vital Signs Temp 97.9 F 10/30/22 12:19 Pulse 91 10/30/22 12:19 Resp 18 10/30/22 12:19 BP 110/71 10/30/22 12:19 Pulse Ox 98 10/30/22 12:19 FiO2 Intake & Output 10/29/22 10/30/22 10/30/22 18:59 06:59 18:59 Intake Total 540 Balance 540 Weight 117.934 kg Intake: Oral 540 - Labs CBC & Chem 7: 10/30/22 06:52 10/30/22 06:52 Labs: Abnormal Lab Results - Last 24 Hours (Table) 10/30/22 10/30/22 Range/Units 06:52 06:52 WBC 12.6 H (3.8-10.6) k/uL Hgb 12.9 L (13.0-17.5) gm/dL MCV 79.3 L (80.0-100.0) fL Sodium 136 L (137-145) mmol/L Glucose 109 H (74-99) mg/dL Amylase 245 H (30-110) U/L Lipase 1041 H (23-300) U/L
--- NOTE | 2022-10-30 15:01 | P.PN ---
Subjective Progress Note Date: 10/30/22 This is a 57 year old male with medical history of hyperlipidemia, gout, MRSA infection to the left thigh, current daily smoker and also marijuana use. Presents to the hospital with 1 day onset of abdominal pain rating 10/10 diffuse with focal tenderness epigastric region. Patient is admitted for acute pancreatitis with abdominal pelvis CT showing acute edematous interstitial pancreatitis with no surrounding organized peripancreatic fluid collections with reactive duodenitis. Patient reports he was camping and a a large meal with [place] food and cheese and also drank about a case of beer. He does deny daily drinking. He than began experiencing abdominal pain. No nausea or vomiting report, he does feel like he needs to have a bowel movement. He is denying chest pain, no shortness of breath, no fever or chills. White count is 13.3 on admission, BUN 22, creatinine 1.49, blood glucose 136, lactic acid of 2.6, troponin level negative, amylase is 5595, lipase is greater than 20,000. Patient is being hydrated with normal saline at 130mls/hr, receiving pain management and bowel rest. Diet is downgraded to NPO. 10/26/2022 Patient is evaluated today on the medical floor. He has been NPO overnight and today states improvement in abdominal pain with minimal epigastric tenderness to palpation on assessment. Amylase and lipase are trending down. Diet will be advanced to clear liquid and will f/u labs in the AM. Patient does have significant tenderness to the right upper quadrant on exam and will f/u with a CMP in the AM with f/u imaging if symptoms are not improving. Patient does report he has been having similar symptoms as this especially after eating over the last [address] does also reveal lateral right middle lobe and lower lobe subsegmental atelectasis and patient will be offered an incentive spirometer. Prostate is also enlarged at 5.4 cm in transverse dimension with prostate calcifications. 10/27/2022 Patient evaluated on the medical floor he continues with significant right upper quad abdominal tenderness on exam and also has diffuse generalized abdominal pain. Has history of kidney stones also, does state he has been having issues with weakened stream lately and recommending post void residuals to monitor for urinary retention. Amylase and lipase are improving however patient does have elevated bilirubin level today and will need f/u imaging to rule out gallstone pancreatitis. Patient is resumed on normal saline secondary to drop in sodium if it continues to drop patient may need to be fluid restricted possibly SIADH from pain. 10/28/2022 Patient evaluated today sitting at the bedside. He is tolerating a clear liquid diet currently. No fever/chills. He had abdominal ultrasound done showing hepatomegaly with underlying hepatic steatosis, adherent gallstones vs. polyps, splenomegaly, proximal abdominal aortic aneurysm measuring 3.4 cm. General surgery was consulted for further evaluation and patient is being evaluated for possible cholecystectomy. Surgery requesting cardiac clearance and consult was placed today. Echocardiogram is ordered and pending. A f/u EKG was done showing normal sinus rhythm heart rate of [address] or T wave changes evident. Total bilirubin is normal 1.1 today. Sodium 133, potassium 3.4. 10/29/2022 Patient is seen and evaluated in follow-up today with general surgery following. Patient maintained on IV hydration and being monitored for pancreatitis. Patient continues to report abdominal pain and tentatively being scheduled for possible acute cholecystectomy with Dr. Eisenberg general surgery. Scheduled for possibly this . Awaiting cardiology clearance for surgery. Patient is currently afebrile denies chest pain or shortness of breath. Patient has intermittent abdominal pain and cramping and continued on clear liquids. Recommend follow-up labs in the a.m. and will continue to monitor closely 10/30/2022 Patient is seen and evaluated this morning with general surgery following and will be nothing by mouth at midnight maintained on clear liquids and tolerating. Diet is being advanced per surgery to full liquids. Patient continues to report with concerns of gallstone pancreatitis and scheduled for laparoscopic cholecystectomy with Dr. Eisenberg. Patient is currently afebrile with no reports of chest pain or shortness of breath noted. Patient has received cardiology clearance for this surgery due to his aortic aneurysm history and comorbidities. Patient denies nausea or vomiting and will continue with full liquids until midnight. Will await surgical report. Patient also had mildly elevated white count and is continued on antibiotics in the form of Zosyn. Review of Systems Constitutional: Denied any fatigue denied any fever. Cardio vascular: denied any chest pain, palpitations Gastrointestinal: denied any nausea, vomiting, diarrhea, continues with epigastric abdominal pain and flank pain. Pulmonary: Denied any shortness of breath cough Neurologic denied any new focal deficits All inpatient medications were reviewed and appropriate changes in these medications as dictated in the interval history and assessment and plan. PHYSICAL EXAMINATION: GENERAL: The patient is alert and oriented x3, obese. Well developed, well nourished. HEENT: Pupils are round and equally reacting to light. EOMI. No scleral icterus. No conjunctival pallor. Normocephalic, atraumatic. No pharyngeal erythema. No thyromegaly. CARDIOVASCULAR: S1 and S2 muffled PULMONARY: Diminished breath sounds bilaterally with no wheezing or crackles. ABDOMEN: Soft, obese, tender mild epigastric and also RUQ abdominal pain,nondistended, normoactive bowel sounds. Liver border is palpable. MUSCULOSKELETAL: No joint swelling or deformity. EXTREMITIES: No cyanosis, clubbing, or pedal edema. NEUROLOGICAL: Gross neurological examination did not reveal any focal deficits. SKIN: No rashes. Assessment: Acute pancreatitis with reactive duodenitis secondary to diet and alcohol use Hyperbilirubinemia has normalized abdominal ultrasound showing gallstones possib le gallstone pancreatitis Acute on chronic RUQ abdominal pain Leukocytosis, trending down Prostatomegaly f/u with urology on dc and monitor for urinary retention History hyperlipidemia Hyperglycemia hemoglobin A1C of 5.4 and blood glucose has normalized, no evidence to consider diabetes mellitus at this time. Chronic and ongoing nicotine use counseled on cessation and patient is denying nicotine patch at this time History of kidney stones Marijuana use GI prophylaxis DVT prophylaxis Full Code Plan: Diet has been advanced to full liquid per general surgery and tentatively scheduled for cholecystecomy tomorrow Cardiology following for cardiac clearance. Echocardiogram was done with an EF of 55-60 with normal LV systolic function. There is mild tricuspid and mitral valve regurgitation noted. Recommend follow-up labs in the a.m. Patient continues with abdominal pain requesting IV Dilaudid and will continue [place] in addition for breakthrough pain WBC mildly elevated patient maintained on Zosyn and will await surgical report Educated on alcohol cessation and diet modification Patient to follow up with GI services and urology on discharge Due To multiple complex medical issues, prognosis is guarded The impression and plan of care has been dictated by Bisi Montgomery, Nurse Practitioner as directed. Dr. Raheem MD I have performed a history and examination and MDM of this patient, discussed the same with the dictator, and agree with the dictator's assessment and plan as written ,documented as a scribe. Based on total visit time, I have performed more than 50% of the visit. Objective - Vital Signs Vital signs: Vital Signs Temp 97.9 F 10/30/22 12:19 Pulse 91 10/30/22 12:19 Resp 18 10/30/22 12:19 BP 110/71 10/30/22 12:19 Pulse Ox 98 10/30/22 12:19 FiO2 Intake & Output 10/29/22 10/30/22 10/30/22 18:59 06:59 18:59 Intake Total 540 Balance 540 Weight 117.934 kg Intake: Oral 540 - Labs CBC & Chem 7: 10/30/22 06:52 10/30/22 06:52 Labs: Abnormal Lab Results - Last 24 Hours (Table) 10/30/22 10/30/22 Range/Units 06:52 06:52 WBC 12.6 H (3.8-10.6) k/uL Hgb 12.9 L (13.0-17.5) gm/dL MCV 79.3 L (80.0-100.0) fL Sodium 136 L (137-145) mmol/L Glucose 109 H (74-99) mg/dL Amylase 245 H (30-110) U/L Lipase 1041 H (23-300) U/L
[2022-10-30] MEDS: ATORVASTATIN 20 MG TAB PO SCH (21:05)
[2022-10-31] MEDS: PIPERACILLIN-TAZOBACTAM 3.375 GM in SODIUM CHLORIDE 0.9% 100 ML IVPB SCH ×3 (02:01→17:44)
[2022-10-31 06:16] LABS: Basophils % (A) 0 %; Eosinophils # (A) 0.3 k/uL (0-0.7); Eosinophils % (A) 2 %; HCT 34.3 % (39.0-53.0); HGB 11.4 gm/dL (13.0-17.5); Lymphocytes # (A) 1.3 k/uL (1.0-4.8); Lymphocytes % (A) 11 %; MCH 26.8 pg (25.0-35.0); MCHC 33.3 g/dL (31.0-37.0); MCV 80.4 fL (80.0-100.0); Mean Platelet Volume 7.8; Monocytes # (A) 0.7 k/uL (0-1.0); Monocytes % (A) 6 %; Neutrophils % (A) 78 %; Platelet Count 279 k/uL (150-450); RBC 4.26 m/uL (4.30-5.90); RDW 14.4 % (11.5-15.5); WBC 11.5 k/uL (3.8-10.6)
[2022-10-31 06:32] LABS: African American GFR (CKD) >90 (>60 ml/min/1.73 sqM); Anion Gap 13 mmol/L; Blood Urea Nitrogen 10 mg/dL (9-20); Calcium 8.1 mg/dL (8.4-10.2); Carbon Dioxide 23 mmol/L (22-30); Chloride 99 mmol/L (98-107); Glucose 105 mg/dL (74-99); Lipase 1043 U/L (23-300); Non-African American GFR(CKD) >90 (>60 ml/min/1.73 sqM); Potassium 3.5 mmol/L (3.5-5.1); Sodium 135 mmol/L (137-145)
[2022-10-31] MEDS: allopurinoL 100 MG TAB PO SCH ×2 (08:23→21:02)
[2022-10-31] MEDS: PANTOPRAZOLE 40 MG/10 ML VIAL IVP SCH ×2 (08:23→20:59)
[2022-10-31] MEDS: NICOTINE 21MG/24HR PATCH TRANSDERM SCH (08:23)
[2022-10-31] MEDS: DULoxetine HCL 60 MG CAPSULE.DR PO SCH (08:23)
[2022-10-31] MEDS: HYDROcodone/APAP 5-325MG 1 EACH TAB PO PRN ×2 (08:34→21:01)
--- NOTE | 2022-10-31 12:55 | P.PN ---
Subjective Progress Note Date: 10/31/22 HISTORY OF PRESENT ILLNESS: The patient is a very pleasant 57-year-old gentleman with smoking and overweight presented to the hospital complaint of abdominal discomfort and back discomfort. The patient was diagnosed with acute pancreatitis and he was found to have gallstone bladder. He reports no pain in the chest. He does have shortness of breath with exertion appeared to be chronic. He is known to have smoking and COPD. Further cardiac workup including EKG was performed and showed sinus mechanism was no ischemic ST or T-wave abnormalities and also an echo is in process to be done. The patient lives at home and he stated that he can go 2 flights of stairs without any symptoms of chest pain or chest discomfort. No history of coronary artery disease or congestive heart failure or any cardiac arrhythmia and the patient never seen by a fire warden in the past. The examination is remarkable for regular rhythm with clear breathing sounds bilaterally and no lower extremity edema noted 10/30/2022 Patient examined this morning at the bedside. Patient denies chest pain or pressure. He denies shortness of breath. Echocardiogram completed revealing preserved systolic function with an ejection fraction of 50-55% with mild TR and mild MR. Vital signs are stable. 10/31/2022 Patient examined this morning at the bedside. Patient without complaints of chest pain or pressure. Denies shortness of breath. He is scheduled to undergo cholecystectomy today with general surgery. Vital signs are stable. PHYSICAL EXAM: VITAL SIGNS: Reviewed. GENERAL: Well-developed in no acute distress. NECK: Supple. No JVD or thyromegaly LUNGS: Respirations even and unlabored. Lungs essentially clear to auscultation bilaterally. HEART: Regular rate and rhythm. S1 and S2 heard. EXTREMITIES: Normal range of motion. No clubbing or cyanosis. Peripheral pulses intact. No lower extremity edema ASSESSMENT: Acute pancreatitis Gallstones Hyperlipidemia PLAN: Continue current cardiac medications There are no contraindications from a cardiac standpoint We will sign off. Please reconsult if needed. Nurse practitioner note has been reviewed by physician. Signing provider agrees with the documented findings, assessment, and plan of care. Objective - Vital Signs Vital signs: Vital Signs Temp 98.1 F 10/31/22 11:20 Pulse 85 10/31/22 11:20 Resp 18 10/31/22 11:20 BP 104/67 10/31/22 11:20 Pulse Ox 97 10/31/22 11:20 FiO2 Intake & Output 10/30/22 10/31/22 10/31/22 18:59 06:59 18:59 Intake Total 830 Balance 830 Intake: Oral 830 Other: Voiding Method Urinal Toilet # Voids 2 - Labs CBC & Chem 7: 10/31/22 04:56 10/31/22 04:56 Labs: Abnormal Lab Results - Last 24 Hours (Table) 10/31/22 10/31/22 Range/Units 04:56 04:56 WBC 11.5 H (3.8-10.6) k/uL RBC 4.26 L (4.30-5.90) m/uL Hgb 11.4 L (13.0-17.5) gm/dL Hct 34.3 L (39.0-53.0) % Neutrophils # 9.0 H (1.3-7.7) k/uL Sodium 135 L (137-145) mmol/L Glucose 105 H (74-99) mg/dL Calcium 8.1 L (8.4-10.2) mg/dL Lipase 1043 H (23-300) U/L
[2022-10-31] MEDS ORDERED: SODIUM CHLORIDE 0.9% 50 ML with ceFAZolin 2,000 MG IV ONE ×2 (13:08)
[2022-10-31] MEDS ORDERED: LACTATED RINGERS 1,000 ML IV ONE ×2 (13:53→15:55)
[2022-10-31] MEDS ORDERED: ONDANSETRON 4 MG/2 ML VIAL IVP ONE (13:54)
[2022-10-31] MEDS ORDERED: DEXAMETHASONE SOD PHOSPHATE 4 MG/ML 1 ML VIAL IVP ONE (13:54)
[2022-10-31] MEDS ORDERED: LIDOCAINE 2%-EPI 1:100,000 20 ML VIAL SQ ONE ×2 (13:57→14:34)
[2022-10-31] MEDS ORDERED: GLYCOPYRROLATE 0.2 MG/ML 2 ML VIAL ONE (14:03)
[2022-10-31] MEDS ORDERED: ROCURONIUM 10 MG/ML (5 ML VIAL) IV ONE (14:03)
[2022-10-31] MEDS ORDERED: HEPARIN SODIUM,PORCINE 10,000 UNIT/ML 1 ML VIAL ONE (14:03)
[2022-10-31] MEDS ORDERED: MIDAZOLAM 2 MG/2 ML VIAL ONE (14:03)
[2022-10-31] MEDS ORDERED: HYDROmorphone (PF) 1 MG/ML ONE (14:03)
[2022-10-31] MEDS ORDERED: PROPOFOL 10 MG/ML 20 ML VIAL IV ONE (14:03)
[2022-10-31] MEDS ORDERED: NEOSTIGMINE 1 MG/ML 10 ML VIAL ONE (14:03)
[2022-10-31] MEDS ORDERED: LIDOCAINE 2% INJ 20 MG/ML (2 ML VIAL) ONE (14:03)
[2022-10-31] MEDS ORDERED: SUCCINYLCHOLINE CHLORIDE 200 MG/10 ML VIAL IV ONE (14:03)
[2022-10-31] MEDS ORDERED: fentaNYL (PF) 50 MCG/ML 2 ML AMP ONE (14:03)
[2022-10-31] MEDS ORDERED: HEPARIN SODIUM,PORCINE/PF 5,000 UNIT/0.5 ML SYRINGE SQ ONE (14:06)
[2022-10-31] MEDS ORDERED: INDOCYANINE GREEN 25 MG VIAL IV ONE (14:08)
[2022-10-31] MEDS ORDERED: ceFAZolin 1,000 MG VIAL ONE (14:08)
[2022-10-31] MEDS ORDERED: SODIUM CHLORIDE 0.9% 100 ML BAG ONE (14:08)
[2022-10-31] MEDS ORDERED: HYDROmorphone 0.5 MG/0.5 ML SYRINGE IVP ONE (16:21)
[2022-10-31] MEDS: SODIUM CHLORIDE 0.9% 1,000 ML IV SCH ×2 (17:34→17:44)
--- NOTE | 2022-10-31 18:16 | P.OP ---
Date of Procedure: 10/31/22 Description of Procedure: SURGEON: EMANUEL HESTER MD PREOPERATIVE DIAGNOSES: 1. Gallstone pancreatitis due to gallstones POSTOPERATIVE DIAGNOSES: 1. Acute cholecystitis with cystic duct obstruction due to gallstones 2. Symptomatic gallstones OPERATION: Robotic-assisted da Yazan Xi laparoscopic cholecystectomy, multiport with FIREFLY ESTIMATED BLOOD LOSS: 20 mL. SPECIMENS REMOVED: Gallbladder. COMPLICATIONS: None. OPERATIVE FINDINGS: 1. Acute cholecystitis with hydrops and distended gallbladder 2. Indocyanine green drain confirms acute cholecystitis with lack of contrast in gallbladder 3. Common bile duct within normal limits, without dilation 4. Dilated cystic duct 5. Mild hepatomegaly without cirrhosis INDICATIONS: The patient is a 57 year-old male who presents with gallstone pancreatitis and acute cholecystitis. Surgical intervention with cholecystectomy was described. Robotic assisted laparoscopic approach was described. Benefits and risks of the procedure including but not limited to bleeding, infection, injury to the biliary tree was reviewed. Informed consent was obtained. DESCRIPTION OF PROCEDURE: Patient was brought to the operating room, placed in supine position. After general induction, the abdomen had been prepped and draped in standard sterile fashion. The robotic da Yazan XI system was primed. After a timeout protocol was performed, the patient had been prepped and draped in standard sterile fashion. The patient was injected with indocyanine green. A 5 mm 0 degrees laparoscopic trocar entry was performed along the left upper quadrant. The abdomen insufflated to 15 mmHg pressure which was tolerated well. Diagnostic laparoscopy demonstrated no injury to bowel viscera or mesentery. The liver surface was unremarkable. A moderately distended gallbladder was identified adding complexity to the case. Next, two 8 mm robotic ports were placed along the right upper abdomen. The camera 8-mm port was maintained along the epigastrium. Another 8 mm port was placed along the left upper abdominal wall after exchanging the 5 mm port. Please note that the ports were placed at least 10 to 15 cm away from the target anatomy of the gallbladder. The robot was docked along the left lateral abdomen. The patient was repositioned in reverse Trendelenburg position with the right side up. Using a grasper for arm 3, a grasper for arm 4, including hook cautery for arm 1, the robotic system was docked and primed as described. Instruments were interchanged by the human resources executive assistant including hook cautery, Bovie cautery and clip appliers. I had sat at the console. The gallbladder was reflected towards the dome of the liver. The gallbladder was moderately distended adding complexity to the case. Moderate edema was found along the cystic triangle including infundibulum. Initial dissection was performed on the gallbladder infundibulum using indocyanine green to illuminate the cystic duct and common bile duct. Due to moderate distention of the infundibulum, dome down technique was performed removing the gallbladder from the hepatic fossa starting from the fundus towards the infundibulum. Using a sponge, the liver was reflected towards the diaphragm and starting at the gallbladder fundus, hook cautery was used to find the avascular plane between the liver and the gallbladder. As the gallbladder was dissected from the hepatic fossa, hemostasis was checked using vessel sealer along the posterior gallbladder. Next, indocyanine green was used to confirm the common bile duct as well as cystic duct. The cystic duct was short and dissection was performed at the junction of the cystic duct and infundibulum. The entire gallbladder was without contrast consistent with acute cholecystitis. The infundibulum was retracted laterally to expose the cystic duct away from the common bile duct. The cystic duct was dissected free from its surrounding tissue. FIREFLY was used to identify the cystic structures. A critical view of safety was obtained. Large PLASTIC clips were used throughout the entire case. Using a clip rail equipment operator, a clip was placed at the junction of the infundibulum and cystic duct. The cystic duct was divided using vessel sealer. Next, the cystic artery was divided using vessel sealer. Electro-Bovie cautery and vessel sealer was used to remove the gallbladder without decompression. Hemostasis was checked and found to be adequate. The robot was undocked. I re-scrubbed into the case. A 10 mm Endo Catch bag was used to remove the gallbladder in total via the left upper quadrant incision after widening the incision. The specimen was removed from the abdominal cavity. Juan Owusu and 0 Vicryl was used to close the fascial defect of the left upper quadrant. All pneumoperitoneum instruments were evacuated from the abdominal cavity. The incisions were cleansed using dilute hydrogen peroxide. The incisions were reapproximated using 4-0 Monocryl in an interrupted subcuticular fashion. Please note along the trocar sites, local anesthetic was placed as a field block prior to insertion of all instruments. Liquid glue was applied to the skin. At the end of the procedure needle, sponge, and instrument count had been verified correct by the surgical asst. The patient was transferred to postanesthesia care unit in stable condition. Intraoperative films were shared with the patient's family who were pleased with the level of care.
[2022-10-31] MEDS ORDERED: ACETAMINOPHEN IV (For NPO) 1,000 MG in EMPTY BAG 1 BAG IVPB ONE (19:00)
--- NOTE | 2022-10-31 20:20 | P.PN ---
Subjective Progress Note Date: 10/31/22 This is a 57 year old male with medical history of hyperlipidemia, gout, MRSA infection to the left thigh, current daily smoker and also marijuana use. Presents to the hospital with 1 day onset of abdominal pain rating 10/10 diffuse with focal tenderness epigastric region. Patient is admitted for acute pancreatitis with abdominal pelvis CT showing acute edematous interstitial pancreatitis with no surrounding organized peripancreatic fluid collections with reactive duodenitis. Patient reports he was camping and a a large meal with sen[place]e food and cheese and also drank about a case of beer. He does deny daily drinking. He than began experiencing abdominal pain. No nausea or vomiting report, he does feel like he needs to have a bowel movement. He is denying chest pain, no shortness of breath, no fever or chills. White count is 13.3 on admission, BUN 22, creatinine 1.49, blood glucose 136, lactic acid of 2.6, troponin level negative, amylase is 5595, lipase is greater than 20,000. Patient is being hydrated with normal saline at 130mls/hr, receiving pain management and bowel rest. Diet is downgraded to NPO. 10/26/2022 Patient is evaluated today on the medical floor. He has been NPO overnight and today states improvement in abdominal pain with minimal epigastric tenderness to palpation on assessment. Amylase and lipase are trending down. Diet will be advanced to clear liquid and will f/u labs in the AM. Patient does have significant tenderness to the right upper quadrant on exam and will f/u with a CMP in the AM with f/u imaging if symptoms are not improving. Patient does report he has been having similar symptoms as this especially after eating over the last [address] does also reveal lateral right middle lobe and lower lobe subsegmental atelectasis and patient will be offered an incentive spirometer. Prostate is also enlarged at 5.4 cm in transverse dimension with prostate calcifications. 10/27/2022 Patient evaluated on the medical floor he continues with significant right upper quad abdominal tenderness on exam and also has diffuse generalized abdominal pain. Has history of kidney stones also, does state he has been having issues with weakened stream lately and recommending post void residuals to monitor for urinary retention. Amylase and lipase are improving however patient does have elevated bilirubin level today and will need f/u imaging to rule out gallstone pancreatitis. Patient is resumed on normal saline secondary to drop in sodium if it continues to drop patient may need to be fluid restricted possibly SIADH from pain. 10/28/2022 Patient evaluated today sitting at the bedside. He is tolerating a clear liquid diet currently. No fever/chills. He had abdominal ultrasound done showing hepatomegaly with underlying hepatic steatosis, adherent gallstones vs. polyps, splenomegaly, proximal abdominal aortic aneurysm measuring 3.4 cm. General surgery was consulted for further evaluation and patient is being evaluated for possible cholecystectomy. Surgery requesting cardiac clearance and consult was placed today. Echocardiogram is ordered and pending. A f/u EKG was done showing normal sinus rhythm heart rate of [address] or T wave changes evident. Total bilirubin is normal 1.1 today. Sodium 133, potassium 3.4. 10/29/2022 Patient is seen and evaluated in follow-up today with general surgery following. Patient maintained on IV hydration and being monitored for pancreatitis. Patient continues to report abdominal pain and tentatively being scheduled for possible acute cholecystectomy with Dr. Eisenberg general surgery. Scheduled for possibly this . Awaiting cardiology clearance for surgery. Patient is currently afebrile denies chest pain or shortness of breath. Patient has intermittent abdominal pain and cramping and continued on clear liquids. Recommend follow-up labs in the a.m. and will continue to monitor closely 10/30/2022 Patient is seen and evaluated this morning with general surgery following and will be nothing by mouth at midnight maintained on clear liquids and tolerating. Diet is being advanced per surgery to full liquids. Patient continues to report with concerns of gallstone pancreatitis and scheduled for laparoscopic cholecystectomy with Dr. Eisenberg. Patient is currently afebrile with no reports of chest pain or shortness of breath noted. Patient has received cardiology clearance for this surgery due to his aortic aneurysm history and comorbidities. Patient denies nausea or vomiting and will continue with full liquids until midnight. Will await surgical report. Patient also had mildly elevated white count and is continued on antibiotics in the form of Zosyn. 10/31/2022 Patient is seen and evaluated this morning currently nothing by mouth and awaiting to undergo laparoscopic cholecystectomy with Dr. Eisenberg today. Patient reports abdominal pain that persists although less severe than presentation. Patient is currently afebrile denies chest pain or shortness of breath and denies palpitations. Will await surgical report. Recommend follow- up labs in the a.m. and will await surgical clearance for discharge. Patient is continued on antibiotics and will continue for now with follow-up labs to monitor WBC. Review of Systems Constitutional: Denied any fatigue denied any fever. Cardio vascular: denied any chest pain, palpitations Gastrointestinal: denied any nausea, vomiting, diarrhea, continues with epigastric abdominal pain Pulmonary: Denied any shortness of breath cough Neurologic denied any new focal deficits All inpatient medications were reviewed and appropriate changes in these medications as dictated in the interval history and assessment and plan. PHYSICAL EXAMINATION: GENERAL: The patient is alert and oriented x3, obese. Well developed, well nourished. HEENT: Pupils are round and equally reacting to light. EOMI. No scleral icterus. No conjunctival pallor. Normocephalic, atraumatic. No pharyngeal erythema. No thyromegaly. CARDIOVASCULAR: S1 and S2 muffled PULMONARY: Diminished breath sounds bilaterally with no wheezing or crackles. ABDOMEN: Soft, obese, tender mild epigastric and also RUQ abdominal pain,nondistended, normoactive bowel sounds. MUSCULOSKELETAL: No joint swelling or deformity. EXTREMITIES: No cyanosis, clubbing, or pedal edema. NEUROLOGICAL: Gross neurological examination did not reveal any focal deficits. SKIN: No rashes. Assessment: Acute pancreatitis with reactive duodenitis secondary to diet and alcohol use, most likely secondary to gallstone pancreatitis Status post laparoscopic cholecystectomy Hyperbilirubinemia, improved Acute on chronic RUQ abdominal pain Leukocytosis, trending down Prostatomegaly f/u with urology on dc and monitor for urinary retention History hyperlipidemia Hyperglycemia hemoglobin A1C of 5.4 and blood glucose has normalized, no evidence to consider diabetes mellitus at this time. Chronic and ongoing nicotine use counseled on cessation and patient is denying nicotine patch at this time History of kidney stones Marijuana use GI prophylaxis DVT prophylaxis Full Code Plan: Patient was continued as nothing by mouth and will resume diet when surgery clears and patient is status post robotic-assisted laparoscopic cholecystectomy secondary to obstructive gallstones Patient with gallstone pancreatitis and numbers appear to be the same and will follow-up with repeat labs in the a.m. Continue with pain management and antibiotics for now Recommend follow-up labs in the a.m. Diet to be advanced per surgery recommendations We'll discuss further with surgery about clearance with possible discharge in the next 24-48 hours Educated on alcohol cessation and diet modification Patient to follow up with GI services and urology on discharge Due To multiple complex medical issues, prognosis is guarded The impression and plan of care has been dictated by Bisi Montgomery, Nurse Practitioner as directed. Dr. Raheem MD I have performed a history and examination and MDM of this patient, discussed the same with the dictator, and agree with the dictator's assessment and plan as written ,documented as a scribe. Based on total visit time, I have performed more than 50% of the visit. Objective - Vital Signs Vital signs: Vital Signs Temp 98.5 F 10/31/22 07:07 Pulse 92 10/31/22 07:07 Resp 16 10/31/22 07:07 BP 107/71 10/31/22 07:07 Pulse Ox 97 10/31/22 07:07 FiO2 Intake & Output 10/30/22 10/31/22 10/31/22 18:59 06:59 18:59 Intake Total 830 Balance 830 Intake: Oral 830 Other: Voiding Method Urinal Toilet # Voids 2 - Labs CBC & Chem 7: 10/31/22 04:56 10/31/22 04:56 Labs: Abnormal Lab Results - Last 24 Hours (Table) 10/31/22 10/31/22 Range/Units 04:56 04:56 WBC 11.5 H (3.8-10.6) k/uL RBC 4.26 L (4.30-5.90) m/uL Hgb 11.4 L (13.0-17.5) gm/dL Hct 34.3 L (39.0-53.0) % Neutrophils # 9.0 H (1.3-7.7) k/uL Sodium 135 L (137-145) mmol/L Glucose 105 H (74-99) mg/dL Calcium 8.1 L (8.4-10.2) mg/dL Lipase 1043 H (23-300) U/L
[2022-10-31] MEDS: ATORVASTATIN 20 MG TAB PO SCH (21:01)
[2022-11-01] MEDS: PIPERACILLIN-TAZOBACTAM 3.375 GM in SODIUM CHLORIDE 0.9% 100 ML IVPB SCH ×2 (02:19→10:32)
[2022-11-01] MEDS: HYDROcodone/APAP 5-325MG 1 EACH TAB PO PRN ×2 (04:42→10:31)
[2022-11-01 05:49] LABS: ALT 66 U/L (4-49); AST 51 U/L (17-59); African American GFR (CKD) >90 (>60 ml/min/1.73 sqM); Albumin 2.9 g/dL (3.5-5.0); Albumin/Globulin Ratio 1.1; Alkaline Phosphatase 95 U/L (38-126); Anion Gap 9 mmol/L; Blood Urea Nitrogen 13 mg/dL (9-20); Calcium 8.5 mg/dL (8.4-10.2); Carbon Dioxide 26 mmol/L (22-30); Chloride 100 mmol/L (98-107); Globulin 2.7 g/dL; Glucose 116 mg/dL (74-99); Non-African American GFR(CKD) >90 (>60 ml/min/1.73 sqM); Potassium 4.7 mmol/L (3.5-5.1); Sodium 135 mmol/L (137-145); Total Bilirubin 0.7 mg/dL (0.2-1.3); Total Protein 5.6 g/dL (6.3-8.2)
[2022-11-01 05:53] LABS: Basophils % (A) 0 %; Eosinophils # (A) 0.1 k/uL (0-0.7); Eosinophils % (A) 1 %; HCT 34.5 % (39.0-53.0); HGB 11.4 gm/dL (13.0-17.5); Lymphocytes # (A) 1.5 k/uL (1.0-4.8); Lymphocytes % (A) 14 %; MCH 26.3 pg (25.0-35.0); MCV 79.9 fL (80.0-100.0); Mean Platelet Volume 7.7; Monocytes # (A) 0.5 k/uL (0-1.0); Monocytes % (A) 4 %; Neutrophils # (A) 8.9 k/uL (1.3-7.7); Neutrophils % (A) 79 %; Platelet Count 281 k/uL (150-450); RBC 4.32 m/uL (4.30-5.90); RDW 14.4 % (11.5-15.5); WBC 11.2 k/uL (3.8-10.6)
[2022-11-01] MEDS: DULoxetine HCL 60 MG CAPSULE.DR PO SCH (09:31)
[2022-11-01] MEDS: NICOTINE 21MG/24HR PATCH TRANSDERM SCH (09:31)
[2022-11-01] MEDS: PANTOPRAZOLE 40 MG/10 ML VIAL IVP SCH (09:31)
[2022-11-01] MEDS: allopurinoL 100 MG TAB PO SCH (09:31)
[2022-11-01] MEDS: SODIUM CHLORIDE 0.9% 1,000 ML IV SCH (10:33)
[2022-11-01 12:51] VITALS: BP 119/70; PULSE 69; RESP 18; TEMP 97.9
--- NOTE | 2022-11-04 15:14 | P.DS ---
Providers Date of admission: 10/25/22 00:20 Expected date of discharge: 11/01/22 Attending physician: Robert Maciel Primary care physician: Physician Nonstaff Hospital Course: Final diagnosis Acute pancreatitis with reactive duodenitis secondary to diet and alcohol use, most likely secondary to gallstone pancreatitis Status post laparoscopic cholecystectomy Hyperbilirubinemia, improved Acute on chronic RUQ abdominal pain Leukocytosis, trending down Prostatomegaly f/u with urology on dc and monitor for urinary retention History hyperlipidemia Hyperglycemia hemoglobin A1C of 5.4 and blood glucose has normalized, no evidence to consider diabetes mellitus at this time. Chronic and ongoing nicotine use counseled on cessation and patient is denying nicotine patch at this time History of kidney stones Marijuana use GI prophylaxis DVT prophylaxis Full Code Discharge disposition Patient is being discharged in a stable condition with guarded prognosis to home. Patient will follow-up with his primary care provider in [place] in the outpatient setting upon discharge. Patient is to have a televisit with general surgery this upcoming week as scheduled. Recommend outpatient labs of CBC and BMP in the next few days. Total time taken is greater than 35 minutes. Hospital course This is a 57-year-old male who was recently admitted with abdominal pain and acute pancreatitis. Patient was closely monitored and evaluated by general surgery most likely gallstone pancreatitis and underwent acute cholecystectomy showing significant improvements and labs and has been cleared and tolerating diet. Patient encouraged to avoid tobacco and alcohol use and close outpatient follow-up. Patient has a telehealth visit this week with Dr. Eisenberg. Recommend follow-up labs in the next few days and prescription provided. Please refer to other consultation notes for further HPI. Currently no reports of chest pain, shortness of breath, or palpitations. Patient is afebrile. No reports of nausea or vomiting and patient is tolerating diet. Patient will be discharged home today. Physical exam: Gen: This is a 57-year-old male who is awake, alert and oriented 3, well- developed, well-nourished, obese HEENT: Head is atraumatic, normocephalic. Pupils equal, round. Sclerae is anicteric. NECK: Supple. No JVD. No lymphadenopathy. No thyromegaly. LUNGS: Clear to auscultation. No wheezes or rhonchi. No intercostal retractions . HEART: Regular rate and rhythm. No murmur. ABDOMEN: Soft. Tender at surgical sites, obese, Bowel sounds are present. No masses. No tenderness. EXTREMITIES: No pedal edema. No calf tenderness. NEUROLOGICAL: Patient is awake, alert and oriented x3. Cranial nerves 2 through 12 are grossly intact. Please refer to medication reconciliation sheet for a list of medications. The impression and plan of care has been dictated by Bisi Montgomery, Nurse Practitioner as directed. Dr. Regina MD I have performed a history and examination and MDM of this patient, discussed the same with the dictator, and agree with the dictator's assessment and plan as written ,documented as a scribe. Based on total visit time, I have performed more than 50% of the visit. Patient Condition at Discharge: Fair Plan - Discharge Summary Discharge Rx Participant: No New Discharge Prescriptions: New Nicotine 21Mg/24Hr Patch [Habitrol] 1 patch TRANSDERM DAILY #30 patch Acetaminophen Tab [Tylenol] 650 mg PO Q6HR PRN tab PRN Reason: Mild Pain Or Fever > 100.5 Ondansetron Odt [Zofran Odt] 4 mg PO Q8HR PRN #20 tab PRN Reason: Nausea Mag Hydrox/Al Hydrox/Simeth [Maalox] 15 ml PO Q6HR PRN ml PRN Reason: Indigestion HYDROcodone/APAP 5-325MG [[place] 5-325] 1 each PO Q6HR PRN #9 tab PRN Reason: Pain Continue DULoxetine HCL [Cymbalta] 60 mg PO DAILY methocarbamoL [Robaxin-750] 750 mg PO TID PRN PRN Reason: Muscle Spasm allopurinoL 100 mg PO BID Terbinafine [LamISIL] 250 mg PO DAILY Omeprazole 40 mg PO DAILY PRN PRN Reason: Heartburn Atorvastatin [Lipitor] 20 mg PO HS Discontinued Meloxicam [Mobic] 15 mg PO HS Discharge Medication List Atorvastatin [Lipitor] 20 mg PO HS 10/24/22 [History] DULoxetine HCL [Cymbalta] 60 mg PO DAILY 10/24/22 [History] Omeprazole 40 mg PO DAILY PRN 10/24/22 [History] Terbinafine [LamISIL] 250 mg PO DAILY 10/24/22 [History] allopurinoL 100 mg PO BID 10/24/22 [History] methocarbamoL [Robaxin-750] 750 mg PO TID PRN 10/24/22 [History] Acetaminophen Tab [Tylenol] 650 mg PO Q6HR PRN tab 11/01/22 [Rx] HYDROcodone/APAP 5-325MG [[place] 5-325] 1 each PO Q6HR PRN #9 tab 11/01/22 [Rx] Mag Hydrox/Al Hydrox/Simeth [Maalox] 15 ml PO Q6HR PRN ml 11/01/22 [Rx] Nicotine 21Mg/24Hr Patch [Habitrol] 1 patch TRANSDERM DAILY #30 patch 11/01/22 [Rx] Ondansetron Odt [Zofran Odt] 4 mg PO Q8HR PRN #20 tab 11/01/22 [Rx] Follow up Appointment(s)/Referral(s): Ebonie Perez MD [STAFF PHYSICIAN] - 11/05/22 (She will do a tele health visit on FRIDAY ) Nonstaff,Physician [Primary Care Provider] - 1-2 days (Offices will call with an appointment date and time. ) Ambulatory/Diagnostic Orders: Basic Metabolic Panel [LAB.AMB] Time Frame: 3 Days, Location: None Selected Patient Instructions/Handouts: *Surgery [facility] - Laparoscopic Cholecystectomy Discharge Instructions Activity/Diet/Wound Care/Special Instructions: Shiv Kelly PA-C - [address] [id number] Activity Limited until follow-up Follow-up with primary care provider on discharge Follow-up with telemetry health surgery meeting next week Continue current diet and slowly advance as tolerated Avoid alcohol and tobacco use Discharge Disposition: HOME SELF-CARE
== END 2022-11-01 13:52 | disposition home or self-care (01) | DRG 263 ==
LOC: EC 21:30 → 5NMEDONC 10-25 00:20
PROVIDERS: ADMIT Hospitalist; ATTEND Hospitalist
PROC: 8E0W4CZ Robotic Assisted Procedure of Trunk Region, Percutaneous Endoscopic Approach (ICD-10-PCS; 2022-10-31)
PROC: 0FT44ZZ Resection of Gallbladder, Percutaneous Endoscopic Approach (ICD-10-PCS; principal; 2022-10-31 13:55)
DX: K85.20 Alcohol induced acute pancreatitis without necrosis or infection (principal); E22.2 Syndrome of inappropriate secretion of antidiuretic hormone; K80.01 Calculus of gallbladder with acute cholecystitis with obstruction; K82.1 Hydrops of gallbladder; R16.2 Hepatomegaly with splenomegaly, not elsewhere classified; K76.0 Fatty (change of) liver, not elsewhere classified; J44.9 Chronic obstructive pulmonary disease, unspecified; I71.40 Abdominal aortic aneurysm, without rupture, unspecified; Z68.35 Body mass index [BMI] 35.0-35.9, adult; K29.80 Duodenitis without bleeding; G89.29 Other chronic pain; N40.1 Benign prostatic hyperplasia with lower urinary tract symptoms; R33.8 Other retention of urine; E78.5 Hyperlipidemia, unspecified; K82.8 Other specified diseases of gallbladder; R73.9 Hyperglycemia, unspecified; F10.90 Alcohol use, unspecified, uncomplicated; F17.210 Nicotine dependence, cigarettes, uncomplicated; E87.6 Hypokalemia; E66.3 Overweight; N42.89 Other specified disorders of prostate; Z86.14 Personal history of Methicillin resistant Staphylococcus aureus infection; Z87.442 Personal history of urinary calculi; Z28.310 Unvaccinated for COVID-19; Z79.899 Other long term (current) drug therapy
CPT/HCPCS: 36415; 74176; 76700; 76857; 80048; 80053; 81001; 82150; 83036; 83605; 83690; 83735; 84484; 85025; 85027; 88304; 93005; 93306; 96361; 96374; 96375; 96376; 99285